=== PATIENT | female | born 1980 | race Caucasian/White ===

== ENCOUNTER → 2016-12-17 | Outpatient (CLI) | payer OTHER ==
[~2016-12-17] MED LIST: BENZ56AE TP; CODE-54 PO; Docusate Sodium PO; FRS325T PO; Ibuprofen PO; LEVO75TA6 PO; MULT-608 PO
== END ==
LOC: CARD 12:19
PROVIDERS: ATTEND Nurse Practitioner Family
DX: R07.9 Chest pain, unspecified (principal)
CPT/HCPCS: 93005

== ENCOUNTER → 2017-01-03 | Outpatient (CLI) | payer OTHER ==
--- NOTE | 2017-01-07 07:53 | ECHOCARDIOGRAPHY REPORT ---
DATE OF SERVICE: 01/03/2017 PROCEDURE: TWO-DIMENSIONAL ECHOCARDIOGRAM ORDERING PHYSICIAN: Dr. Carreon. PRIMARY PHYSICIAN: ____ CLINICAL DIAGNOSES: Syncope, bradycardia. MEASUREMENTS: Aortic root 3.2. Left atrium 3.2. Left ventricular diameter diastolic 4.6 IVS thickness 0.9. LVPW thickness 0.8. DESCRIPTION: Two-dimensional echocardiography shows normal global left ventricular systolic function with normal regional wall motion. Aortic, mitral and tricuspid valve leaflets show good leaflet excursion. Aortic valve appears to be trileaflet. Doppler imaging did not indicate any significant valvular regurgitation or stenosis. Pulmonary artery systolic pressure is estimated to be within normal limits. There is no evidence of any significant intracardiac shunt on this transthoracic echocardiographic study. Inferior vena cava is of normal size and exhibits normal inspiratory collapse. CONCLUSIONS: 1. Normal global left ventricular systolic function with an ejection fraction approximately 60%. 2. No regional wall motion abnormalities seen on this study. 3. No significant valvular regurgitation or stenosis. 4. Pulmonary artery systolic pressure is estimated to be within normal limits. Job ID: [id number] DocumentID: [id number] Dictated Date: 01/06/2017 17:41:14 Inside Barrel Lathe Operator Date: 01/06/2017 21:19:02 Dictated By: AVA CARREON MD, MA, FACP, FACC,
== END ==
LOC: CARD 12:16
PROVIDERS: ATTEND Internal Medicine Cardiovascular Disease
DX: R00.1 Bradycardia, unspecified (principal); R55 Syncope and collapse
CPT/HCPCS: 93306

== ENCOUNTER → 2017-01-07 | Outpatient (CLI) | payer OTHER | LOC: CARD 11:10 | PROVIDERS: ATTEND Internal Medicine Cardiovascular Disease | DX: R55 Syncope and collapse (principal); R00.1 Bradycardia, unspecified | CPT/HCPCS: 93225; 93226 ==

== ENCOUNTER → 2017-03-13 | Outpatient (CLI) | payer OTHER ==
--- NOTE | 2017-03-13 15:53 | Diagnostic Imaging Report ---
INDICATION: Placenta previa. survey. TECHNIQUE: Multiple real-time grayscale images were obtained over the gravid uterus. COMPARISON: None FINDINGS: heart rate is 143 beats per minute. The placenta is fundal and is posterior. There is no placenta previa. The cervix is 4.2 cm in length with closed appearance. There is adequate amniotic fluid seen. The cord insertion, the four-chamber view, two umbilical arteries, the stomach, the spine, posterior fossa, and the lateral ventricles appear unremarkable. Biometrical measurements are as follows: Biparietal 4.65 cm, age 20 weeks 1 days. Head circumference 17.35 cm, age 20 weeks 0 days. Abdominal circumference 15.19 cm, age 20 weeks 3 days. Femur length 3.21 cm, age 20 weeks 0 days. Sonographic estimate age: 20 weeks 1 days. This compares to gestational age of 20 weeks and 2 days based on assigned BONNIE of 07/29/2017 with growth parameters within normal limits. Sonographic estimated date of delivery: 07-30-17. Estimated Weight: 337 gm (+/- 49 gm). LMP percentile: 39%. heart rate: 143 beats per minute. number: 1 of 1. IMPRESSION: Live intrauterine . Dictated by: Dictated on workstation # [id number]
== END ==
LOC: RAD 13:58
PROVIDERS: ATTEND Obstetrics & Gynecology
DX: Z36 Encounter for antenatal screening of mother (principal); Z3A.20 20 weeks gestation of pregnancy
CPT/HCPCS: 76805

== ENCOUNTER 2017-05-23 09:29 | Outpatient (RCR) | payer OTHER | END 2017-05-31 | disposition home or self-care (01) | DX: M54.5 Low back pain (principal) ==

== ENCOUNTER 2017-06-11 09:24 | Outpatient (RCR) | payer OTHER ==
[2017-07-29] MEDS ORDERED: DOCU100C37 PO (16:58)
[2017-07-29] MEDS ORDERED: BENZ56AE2 TP (16:58)
[2017-07-29] MEDS ORDERED: Hydrocodone Bit/Acetaminophen PO (16:58)
[2017-07-29] MEDS ORDERED: IBUP-1773 PO (16:58)
== END 2017-08-15 16:06 | disposition home or self-care (01) ==
DX: M54.5 Low back pain (principal)

== ENCOUNTER → 2017-07-16 | Outpatient (CLI) | payer OTHER ==
[2017-07-16 09:10] LABS: MEAN PLATELET VOLUME 9.3 FL (7.4-10.4); RED BLOOD COUNT 3.68 10^6/uL (4.35-5.85); RED CELL DISTRIBUTION WIDTH 13.6 % (10.0-14.5)
--- NOTE | 2017-07-16 11:10 | Diagnostic Imaging Report ---
PROCEDURE: US Carotid Duplex Bilateral. TECHNIQUE: Multiple Real-time grayscale images were obtained over the carotid arteries in various projections bilaterally. Additional duplex Doppler and color Doppler images were also obtained. INDICATION: Pulsatile tinnitus. FINDINGS: Grayscale images demonstrate no significant plaque. Color Doppler demonstrates patent common, internal, and external carotid arteries bilaterally. The vertebral arteries are patent and demonstrate antegrade flow on both sides. The right ICA velocities are 94, 89, and 109 cm/s from proximal to distal and on the left side are 91, 105, and 106 cm/s. The ICA/CCA ratios are up to 0.9 on the right side and 0.9 on the left. IMPRESSION: No significant plaque. The estimated underlying stenosis is between 0-25% bilaterally. Dictated by: Dictated on workstation # [id number]
== END ==
LOC: RAD 08:58
PROVIDERS: ATTEND Otolaryngology Otolaryngology/Facial Plastic Surgery
DX: H93.A3 Pulsatile tinnitus, bilateral (principal)
CPT/HCPCS: 36415; 84443; 85027; 85652; 93880

== ENCOUNTER 2017-07-29 06:30 | Inpatient (IN) | payer OTHER ==
[2017-07-29] VITALS (33 sets, daily range): BP systolic 94–150; BP diastolic 52–115
[~2017-07-29] VITALS: Ht 172.7 cm; Wt 84.4 kg
[2017-07-29] MEDS ORDERED: D5 LR IV SOLUTION 1,000 ML IV ONE (06:49)
[2017-07-29] MEDS: D5 LR IV SOLUTION 1,000 ML IV SCH ×2 (07:07→15:00)
[2017-07-29] MEDS ORDERED: LIDOCAINE/EPI 1%-1:100,000 (XYLOCAINE) 20ML INJ ONE (08:00)
[2017-07-29 08:12] LABS: BASOPHILS % (AUTO) 0 % (0-10); EOSINOPHILS # (AUTO) 0.1 10^3/uL (0.0-0.3); EOSINOPHILS % (AUTO) 1 % (0-10); LYMPHOCYTES # (AUTO) 1.5 X 10^3 (1.0-4.0); LYMPHOCYTES % (AUTO) 21 % (12-44); MEAN CORPUSCULAR HEMOGLOBIN 34 PG (25-34); MEAN CORPUSCULAR HGB CONC 35 G/DL (32-36); MEAN CORPUSCULAR VOLUME 96 FL (80-99); MEAN PLATELET VOLUME 10.3 FL (7.4-10.4); MONOCYTES # (AUTO) 0.6 X 10^3 (0.0-1.0); MONOCYTES % (AUTO) 8 % (0-12); NEUTROPHILS % (AUTO) 71 % (42-75); PLATELET COUNT 111 10^3/uL (130-400); RED BLOOD COUNT 3.55 10^6/uL (4.35-5.85); RED CELL DISTRIBUTION WIDTH 13.7 % (10.0-14.5); WHITE BLOOD COUNT 7.1 10^3/uL (4.3-11.0)
--- NOTE | 2017-07-29 08:42 | History & Physical-OB ---
OB - Chief Complaint & HPI Date/Time Date of Admission: Date of Admission: Jul 29, 2017 at 06:34 Time Seen by Provider: 08:20 Chief Complaint/History OB-Reason for Admission/Chief: Induction of Labor Hx : 4 Hx Para: 3 Expected Date of Delivery: Jul 29, 2017 Gestational Age in Weeks: 40 Gestational Age in Days: 0 Indication for induction: post dates Admission Nurse Assessment Rev: Yes History of Labs O neg Antibody pos (RhIG) RI RPR NR HBsAg NR HIV NR GC neg GBS neg Allergies and Home Medications Allergies Coded Allergies: No Known Drug Allergies (Unverified , 08/04/14) Home Medications Levothyroxine Sodium 75 Mcg Tablet, 75 MCG PO DAILY, (Reported) Multivitamins 1 Tab Tablet, 1 TAB PO DAILY, (Reported) OB - History Hx of Present Care: Yes Ultrasounds: Normal mid trimester US Obstetrical Complications: None Medical Complications: None Obstetrical History Hx Termination: No Hx Multiple Gestation: No Hx Complication: No Hx Induced Hypertens: No Hx Maternal Gestational Diabet: No Delivery History Hx Dystocia: No Hx Large For Gestational Age I: No Hx Small for Gestational Age I: No Hx Section: No Hx Vaginal Delivery Post C-Sec: No Hx Blood Disorders: No Adverse Rxn to Tranfusion: No Patient Past Medical History Depression, Endometriosis Immunizations Hepatitis A: No Hepatitis B: Yes Tetanus Booster (TDap): Less than 5yrs OB - Admission Exam Physical Exam HEENT: NCAT Heart: Rhythm Normal Lungs: Clear Abdomen: Gravid Extremities: Normal Reflexes: Normal Cervical Dilatation: 4cm Effacement: 75% Station: -1 Membranes: Intact Heart Rate: 130's Accelerations: Accelerations Present Decelerations: No Decelerations Short Term Variability: Present Detention Variability: Average (6-25) Contractions on Admission: >10 Minutes Apart Intensity: Mild Michelle Scoring Tool (Modified) Dilation (cm): 3-4cm (2) Effacement (%): 51-79% (2) Descent/Station: -1,0 (2) Cervix Consistency: Soft (2) Cervix Position: Anterior (2) Add 1 point for: Each previous vaginal delivery (1) Michelle Score: 13 Labs Laboratory Tests Test 07/29/17 07:05 Range/Units White Blood Count 7.1 4.3-11.0 10^3/uL Red Blood Count 3.55 L 4.35-5.85 10^6/uL Hemoglobin 11.9 11.5-16.0 G/DL Hematocrit 34 L 35-52 % Mean Corpuscular Volume 96 80-99 FL Mean Corpuscular Hemoglobin 34 25-34 PG Mean Corpuscular Hemoglobin Concent 35 32-36 G/DL Red Cell Distribution Width 13.7 10.0-14.5 % Platelet Count 111 L 130-400 10^3/uL Mean Platelet Volume 10.3 7.4-10.4 FL Neutrophils (%) (Auto) 71 42-75 % Lymphocytes (%) (Auto) 21 12-44 % Monocytes (%) (Auto) 8 0-12 % Eosinophils (%) (Auto) 1 0-10 % Basophils (%) (Auto) 0 0-10 % Neutrophils # (Auto) 5.0 1.8-7.8 X 10^3 Lymphocytes # (Auto) 1.5 1.0-4.0 X 10^3 Monocytes # (Auto) 0.6 0.0-1.0 X 10^3 Eosinophils # (Auto) 0.1 0.0-0.3 10^3/uL Basophils # (Auto) 0.0 0.0-0.1 10^3/uL OB - Assessment/Plan/Diagnosis Assessment Assessment: induction of labor Plan Induction Method: AROM Discharge Diagnosis Diagnosis: 36 yo @ 40.0 AMA Gestational thrombocytopenia GBS neg LESLY KAUR DO Jul 29, 2017 08:42
[2017-07-29 08:56] LABS: BILIRUBIN,URINE NEGATIVE (NEGATIVE); KETONES,URINE NEGATIVE (NEGATIVE); LEUKOCYTE ESTERASE ,URINE NEGATIVE (NEGATIVE); NITRITE,URINE NEGATIVE (NEGATIVE); PH,URINE 8 (5-9); PROTEIN,URINE NEGATIVE (NEGATIVE); UROBILINOGEN,URINE NORMAL (NORMAL)
[2017-07-29 09:11] LABS: WBC,URINE RARE /HPF
[2017-07-29] MEDS ORDERED: OXYTOCIN/NORMAL SALINE 500 ML IV ONE (09:29)
[2017-07-29] MEDS ORDERED: OXYTOCIN/NORMAL SALINE 500 ML IV SCH ×2 (09:36→16:03)
[2017-07-29] MEDS ORDERED: LIDOCAINE/EPI 2% 1:200,00 (XYLOCAINE) 10 ML VIAL ONE (13:56)
[2017-07-29] MEDS ORDERED: fentaNYL INJECTION 100 MCG/2 ML AMP ONE (13:58)
[2017-07-29] MEDS ORDERED: CATHETER FLUSH 10 ML SYR IV SCH (14:00)
[2017-07-29] MEDS ORDERED: HYDROcodone/APAP 5 MG/325 MG (LORTAB) TAB PO PRN (16:15)
[2017-07-29] MEDS ORDERED: MEASLES,MUMPS,RUBELLA 1 EA INJ SQ ONE (16:15)
[2017-07-29] MEDS ORDERED: DIBUCAINE (NUPERCAINAL) 1% OINT 30 GM TOP PRN (16:15)
[2017-07-29] MEDS ORDERED: WITCH HAZEL(TUCKS) 40 EA JAR TOP PRN (16:15)
[2017-07-29] MEDS ORDERED: TETANUS,DIPTH,PERTUSS P/F (BOOSTRIX) 0.5 ML VIAL IM ONE (16:15)
[2017-07-29] MEDS ORDERED: BENZOCAINE/MENTHOL (DERMOPLAST) 56 ML CAN TP PRN (16:15)
--- NOTE | 2017-07-29 16:56 | OB Labor & Delivery Record ---
L&D History Date of Service Date of Service: Jul 29, 2017 History Expected Date of Delivery: Jul 29, 2017 Gestational Age in Weeks: 40 Hx : 4 Hx Para: 3 Complications Events: Routine care (AMA, and Gestational Thrombocytopenia) Operative Indications (Cesarea: N/A-Vaginal Delivery Intrapartal Events: None L&D Stage1 Stage One Onset of Labor - Date: Jul 29, 2017 Monitors and Tracing Monitor Mode: External Heart Rate: 130 Monitor Accelerations: Uniform Monitor Decelerations: None Station: +1 Sports Instructor Variability: Average (6-10) Short Term Variability: Present Presentation: Vertex Vital Signs VS - Last 72 Hours, by Label 07/29/17 07/29/17 07/29/17 07/29/17 07:00 07:30 08:00 08:30 Temp 98.1 Pulse 63 75 81 73 Resp 20 20 20 20 B/P (MAP) 108/59 109/61 109/73 124/65 O2 Delivery Room Air Room Air Room Air Room Air 07/29/17 07/29/17 07/29/17 07/29/17 09:00 09:30 10:00 10:30 Pulse 62 63 Resp 20 20 20 20 B/P (MAP) 110/61 119/56 O2 Delivery Room Air Room Air Room Air Room Air 07/29/17 07/29/17 07/29/17 07/29/17 10:45 11:00 11:15 11:30 Temp 98.4 Pulse 57 57 71 60 Resp 20 20 20 20 B/P (MAP) 119/62 103/60 102/64 98/58 O2 Delivery Room Air Room Air Room Air Room Air 07/29/17 07/29/17 07/29/17 07/29/17 11:45 12:00 12:15 12:30 Pulse 70 56 71 63 Resp 20 20 20 20 B/P (MAP) 94/57 108/56 147/115 109/57 O2 Delivery Room Air Room Air Room Air Room Air 07/29/17 07/29/17 07/29/17 07/29/17 12:45 13:00 13:15 13:30 Pulse 63 62 61 62 Resp 20 20 20 20 B/P (MAP) 125/65 110/61 111/53 123/58 O2 Delivery Room Air Room Air Room Air Room Air 07/29/17 07/29/17 07/29/17 07/29/17 13:45 14:00 14:15 14:30 Pulse 67 70 62 Resp 20 20 20 20 B/P (MAP) 127/61 150/84 112/62 Pulse Ox 99 O2 Delivery Room Air Room Air Room Air Room Air 07/29/17 07/29/17 14:45 15:00 Pulse 59 59 Resp 20 20 B/P (MAP) 100/56 95/52 O2 Delivery Room Air Room Air Rupture of Membranes Amniotic Membrane Rupture Time: 0806 Amniotic Membrane Fluid Desc.: Clear Vaginal Bleeding Description: Normal Show Progress/Notes spinal block administered from anesthesia due to close proximity to delivery timing. She was 8-9 cm at the time of placement and received excellent pain control from this. L&D Stage2 Stage Two Stage II Date: Jul 29, 2017 Monitors and Tracing Monitor Mode: External Heart Rate: 130 Monitor Decelerations: Variable Sports Instructor Variability: Average (6-10) Short Term Variability: Present Position: Right Occiput Anterior Presentation: Vertex Cord Descript/Complications Cord Vessel Description: 3 Vessels Complications nuchal cord x 2 Delivery Type Delivery Method: Spontaneous Vaginal Anterior Shoulder: Right Episiotomy/Perineal Laceration Laceraction(s)/Extensions: Yes Episiotomy Description: Midline, Perineal Extension/lac Degree (describe repair) midline perineal laceration 2nd degree repaired in usual fashion Condition of Delivery 1 minute Comment: 9 5 minute Comment: 9 Condition of Condition of : Living Exam: No Observed Abnormalities Live male weight 7lbs 10 oz Resuscitation Resuscitation: N/A - Spontaneous Resp L&D Stage3 Stage Three Stage III Date: Jul 29, 2017 Pictocin Pitocin Administration mu/min: 0 Pitocin ml/hr: 0 Pitocin Administration Comment: PITOCIN bolused wide open at delivery of placneta Placenta Delivery Placenta Delivery: Spontaneous Delivery Summary Summary Estimated blood loss (mL): 350 Attending at delivery: Lesly Kaur DO Condition of Delivery Examined: Cervix Examined, Uterus Explored Post Hemorrhage: No Condition of Mother stable Condition of (s) stable LESLY KAUR DO Jul 29, 2017 4:56 pm
--- NOTE | 2017-07-29 16:57 | Discharge Inst-Women's Service ---
Discharge Inst-Women's Serv Depart Medication/Instructions New, Converted or Re-Newed RX: RX on Chart Consults/Follow Up Additional Follow Up: Yes Orders/Referrals DR. Kaur in 6 weeks Activity Activity: Activity as Tolerated Driving Instructions: No Driving for 1 Week NO SMOKING: NO SMOKING Nothing Inside Vagina: No Douching, No [place], No Tampons Diet Discharge Diet: No Restrictions Symptoms to Report to : Bleeding Excessive, Pain Increased, Fever Over 101 Degrees F, Vaginal Bleeding Increase, Questions/Concerns For Any Problems or Questions: Contact Your Physician Skin/Wound Care Bathing Instructions: Shower (x 2 weeks, or sitz baths) LESLY KAUR DO Jul 29, 2017 4:57 pm
[2017-07-29] MEDS ORDERED: BENZ56AE2 TP (16:58)
[2017-07-29] MEDS ORDERED: Hydrocodone Bit/Acetaminophen PO (16:58)
[2017-07-29] MEDS ORDERED: IBUP-1773 PO (16:58)
[2017-07-29] MEDS ORDERED: DOCU100C37 PO (16:58)
[2017-07-29] MEDS: IBUPROFEN 600 MG (MOTRIN) TAB PO SCH ×2 (18:05→23:41)
[2017-07-29] MEDS ORDERED: INFLUENZA TRIvalent 2017-2018 0.5 ML/45 MCG SYR IM ONE (20:15)
[2017-07-29] MEDS: DOCUSATE SODIUM 100 MG (COLACE) CAP PO SCH (21:09)
[2017-07-29] MEDS: CATHETER FLUSH 10 ML SYR IV SCH (21:09)
[2017-07-30] VITALS: BP 95/53
[2017-07-30 06:00] VITALS: BP 104/62
[2017-07-30] MEDS: IBUPROFEN 600 MG (MOTRIN) TAB PO SCH ×3 (06:02→17:09)
[2017-07-30 06:16] LABS: BASOPHILS % (AUTO) 0 % (0-10); EOSINOPHILS # (AUTO) 0.1 10^3/uL (0.0-0.3); EOSINOPHILS % (AUTO) 1 % (0-10); LYMPHOCYTES # (AUTO) 1.7 X 10^3 (1.0-4.0); LYMPHOCYTES % (AUTO) 16 % (12-44); MEAN CORPUSCULAR HEMOGLOBIN 33 PG (25-34); MEAN CORPUSCULAR HGB CONC 35 G/DL (32-36); MEAN CORPUSCULAR VOLUME 94 FL (80-99); MEAN PLATELET VOLUME 9.8 FL (7.4-10.4); MONOCYTES # (AUTO) 0.8 X 10^3 (0.0-1.0); MONOCYTES % (AUTO) 7 % (0-12); NEUTROPHILS # (AUTO) 8.1 X 10^3 (1.8-7.8); NEUTROPHILS % (AUTO) 76 % (42-75); PLATELET COUNT 117 10^3/uL (130-400); RED BLOOD COUNT 3.28 10^6/uL (4.35-5.85); RED CELL DISTRIBUTION WIDTH 13.1 % (10.0-14.5); WHITE BLOOD COUNT 10.7 10^3/uL (4.3-11.0)
[2017-07-30] MEDS ORDERED: PRENATAL VITAMIN 1 EA TAB PO SCH (07:00)
--- NOTE | 2017-07-30 08:36 | Progress Note-Standard ---
Standard Progress Note Progress Notes/Assess & Plan Date Seen by Provider: Jul 30, 2017 Time Seen by Provider: 08:35 Progress/Assessment & Plan Patient doing well today, no concern voiced. Lochia light. Ambulating and voiding freely. Vital Sign - Last 24 Hours 07/29/17 07/29/17 07/29/17 07/29/17 09:00 09:30 10:00 10:30 Pulse 62 63 Resp 20 20 20 20 B/P (MAP) 110/61 119/56 O2 Delivery Room Air Room Air Room Air Room Air 07/29/17 07/29/17 07/29/17 07/29/17 10:45 11:00 11:15 11:30 Temp 98.4 Pulse 57 57 71 60 Resp 20 20 20 20 B/P (MAP) 119/62 103/60 102/64 98/58 O2 Delivery Room Air Room Air Room Air Room Air 07/29/17 07/29/17 07/29/17 07/29/17 11:45 12:00 12:15 12:30 Pulse 70 56 71 63 Resp 20 20 20 20 B/P (MAP) 94/57 108/56 147/115 109/57 O2 Delivery Room Air Room Air Room Air Room Air 07/29/17 07/29/17 07/29/17 07/29/17 12:45 13:00 13:15 13:30 Pulse 63 62 61 62 Resp 20 20 20 20 B/P (MAP) 125/65 110/61 111/53 123/58 O2 Delivery Room Air Room Air Room Air Room Air 07/29/17 07/29/17 07/29/17 07/29/17 13:45 14:00 14:15 14:30 Pulse 67 70 62 Resp 20 20 20 20 B/P (MAP) 127/61 150/84 112/62 Pulse Ox 99 O2 Delivery Room Air Room Air Room Air Room Air 07/29/17 07/29/17 07/29/17 07/29/17 14:45 15:00 15:15 15:30 Pulse 59 59 70 61 Resp 20 20 20 20 B/P (MAP) 100/56 95/52 131/57 106/55 O2 Delivery Room Air Room Air Room Air Room Air 07/29/17 07/29/17 07/29/17 07/29/17 15:45 16:30 16:40 17:09 Pulse 75 58 57 61 Resp 18 18 18 18 B/P (MAP) 107/74 126/66 110/64 118/66 07/29/17 07/29/17 07/29/17 07/29/17 17:24 17:38 17:48 20:15 Temp 98.4 Pulse 54 63 65 74 Resp 18 18 18 19 B/P (MAP) 113/63 112/55 107/57 110/68 Pulse Ox 97 O2 Delivery Room Air 07/30/17 07/30/17 00:00 06:00 Temp 97.4 97.6 Pulse 59 63 Resp 16 18 B/P (MAP) 95/53 104/62 Pulse Ox 98 O2 Delivery Room Air Uterine fundus firm and palpated below umbilicus Laboratory Tests Test 07/30/17 05:44 Range/Units White Blood Count 10.7 4.3-11.0 10^3/uL Red Blood Count 3.28 L 4.35-5.85 10^6/uL Hemoglobin 10.9 L 11.5-16.0 G/DL Hematocrit 31 L 35-52 % Mean Corpuscular Volume 94 80-99 FL Mean Corpuscular Hemoglobin 33 25-34 PG Mean Corpuscular Hemoglobin Concent 35 32-36 G/DL Red Cell Distribution Width 13.1 10.0-14.5 % Platelet Count 117 L 130-400 10^3/uL Mean Platelet Volume 9.8 7.4-10.4 FL Neutrophils (%) (Auto) 76 H 42-75 % Lymphocytes (%) (Auto) 16 12-44 % Monocytes (%) (Auto) 7 0-12 % Eosinophils (%) (Auto) 1 0-10 % Basophils (%) (Auto) 0 0-10 % Neutrophils # (Auto) 8.1 H 1.8-7.8 X 10^3 Lymphocytes # (Auto) 1.7 1.0-4.0 X 10^3 Monocytes # (Auto) 0.8 0.0-1.0 X 10^3 Eosinophils # (Auto) 0.1 0.0-0.3 10^3/uL Basophils # (Auto) 0.0 0.0-0.1 10^3/uL Diagnosis: PPD 1 NVD Thrombocytopenia improved Hypothyroidism P: Anticipate dc later today pending release Continue routine PP care Discharge instructions reviewed. LESLY KAUR DO Jul 30, 2017 8:36 am
--- NOTE | 2017-07-30 08:52 | Anesthesia-Regional Post-Op ---
Regional Patient Condition Mental Status: Alert, Oriented x3 Circulation: Same as Pre-Op Headache: Absent Sensation: Full Recovery Motor Block: Absent Post Op Complications Complications None Follow Up Care/Instructions Patient Instructions None needed. Anesthesia/Patient Condition Patient is doing well, no complaints, stable vital signs, no apparent adverse anesthesia problems. No complications reported per nursing. D/C home per [facility] [place]: No CITLALI WALKER CRNA Jul 30, 2017 08:52
[2017-07-30] MEDS: DOCUSATE SODIUM 100 MG (COLACE) CAP PO SCH (10:04)
[2017-07-30] MEDS: CATHETER FLUSH 10 ML SYR IV SCH (10:29)
[2017-07-30 11:43] VITALS: BP 101/66
== END 2017-07-30 17:25 | disposition home or self-care (01) | DRG 775 ==
LOC: LDRP 06:34
PROVIDERS: ADMIT Obstetrics & Gynecology; ATTEND Obstetrics & Gynecology
PROC: 10E0XZZ Delivery of Products of Conception, External Approach (ICD-10-PCS; principal; 2017-07-29)
PROC: 0KQM0ZZ Repair Perineum Muscle, Open Approach (ICD-10-PCS; 2017-07-29)
DX: O48.0 Post-term pregnancy (principal); O99.113 Other diseases of the blood and blood-forming organs and certain disorders involving the immune mechanism complicating pregnancy, third trimester; D69.6 Thrombocytopenia, unspecified; O70.1 Second degree perineal laceration during delivery; O99.343 Other mental disorders complicating pregnancy, third trimester; F32.9 Major depressive disorder, single episode, unspecified; O99.283 Endocrine, nutritional and metabolic diseases complicating pregnancy, third trimester; E03.9 Hypothyroidism, unspecified; O69.81X0 Labor and delivery complicated by cord around neck, without compression, not applicable or unspecified; Z3A.40 40 weeks gestation of pregnancy; Z37.0 Single live birth
CPT/HCPCS: 36415; 81000; 83033; 85025; 86850; 86900; 86901; 87088

== ENCOUNTER 2017-11-05 05:38 | Outpatient (CLI) | payer OTHER ==
[~2017-11-05] VITALS: Ht 172.7 cm; Wt 72.6 kg
[~2017-11-05 05:38] MED LIST changes: +BENZ56AE2 TP; +DOCU100C37 PO; +Hydrocodone Bit/Acetaminophen PO; +IBUP-1773 PO
[2017-11-05] MEDS ORDERED: LEVO75TA6 PO (10:30)
== END 2017-11-05 10:38 ==
LOC: PREOP 05:38 → EEVIPCON 05:38 → PREOP 10:38
PROVIDERS: ATTEND Obstetrics & Gynecology
DX: Z01.818 Encounter for other preprocedural examination (principal); N81.6 Rectocele

== ENCOUNTER 2017-11-13 08:58 | Day surgery (SDC) | payer BC, OTHER ==
[~2017-11-13] VITALS: Ht 172.7 cm; Wt 72.6 kg
[2017-11-13] MEDS ORDERED: LACTATED RINGERS 1,000 ML IV PRN (09:36)
[2017-11-13] MEDS ORDERED: FAMOTIDINE 20MG/2ML IV (PEPCID) IV ONE (09:45)
[2017-11-13] MEDS ORDERED: SCOPOLAMINE 1.5 MG (TRANSDERM-SCOP) PATCH TOP ONE (09:45)
[2017-11-13] MEDS ORDERED: MIDAZOLAM 2 MG/2 ML (VERSED) VIAL IV ONE (09:45)
[2017-11-13] MEDS ORDERED: ONDANSETRON 4 MG/2 ML (SDV) Z0FRAN IV ONE (09:45)
[2017-11-13] MEDS ORDERED: NS (IVPB) 100 ML ONE (10:19)
[2017-11-13] MEDS ORDERED: ceFAZolin 1,000 MG (ANCEF) VIAL ONE (10:19)
[2017-11-13] MEDS ORDERED: ONDANSETRON 4 MG/2 ML (SDV) Z0FRAN IV PRN (11:00)
[2017-11-13] MEDS ORDERED: HYDROcodone/APAP 5 MG/325 MG (LORTAB) TAB PO PRN (11:00)
[2017-11-13] MEDS ORDERED: BENZOCAINE/MENTHOL (DERMOPLAST) 56 ML CAN TP PRN ×2 (11:00→15:15)
[2017-11-13] MEDS ORDERED: METOCLOPRAMIDE INJ 10 MG/2 ML (REGLAN) IV PRN (11:00)
[2017-11-13] MEDS ORDERED: KETOROLAC 30 MG/ML VIAL IV SCH (11:00)
[2017-11-13] MEDS ORDERED: proPOfol 200 MG/20 ML (DIPRIVAN) VIAL IV ONE (11:02)
[2017-11-13] MEDS ORDERED: LACTATED RINGERS 1,000 ML IV ONE (11:02)
[2017-11-13] MEDS ORDERED: LIDOCAINE PF 2% 5 ML (XYLOCAINE) VIAL ONE (11:02)
[2017-11-13] MEDS ORDERED: SEVOFLURANE (ULTANE) 15 ML INHAL SOLN ONE ×2 (11:02→11:50)
[2017-11-13] MEDS ORDERED: MIDAZOLAM 2 MG/2 ML (VERSED) VIAL ONE (11:03)
[2017-11-13] MEDS ORDERED: fentaNYL INJECTION 100 MCG/2 ML AMP ONE (11:03)
--- NOTE | 2017-11-13 11:03 | Discharge Inst-Women's Service ---
Discharge Inst-Women's Serv Depart Medication/Instructions New, Converted or Re-Newed RX: RX on Chart Consults/Follow Up Additional Follow Up: Yes Orders/Referrals Dr. Kaur in 5 weeks Activity Activity: Activity as Tolerated Driving Instructions: No Driving for 1 Week NO SMOKING: NO SMOKING Nothing Inside Vagina: No Douching, No [place], No Tampons Diet Discharge Diet: No Restrictions Symptoms to Report to : Bleeding Excessive, Pain Increased, Fever Over 101 Degrees F, Vaginal Bleeding Increase, Questions/Concerns For Any Problems or Questions: Contact Your Physician Skin/Wound Care Infection Signs and Symptoms: Increased Redness, Foul Odor of Wound, Increased Drainage, Skin Itchy or Has a Rash, Increased Swelling, Temperature Above 101 F Bathing Instructions: Shower (and sitz baths after 2 weeks) LESLY KAUR DO Nov 13, 2017 11:02
[2017-11-13] MEDS ORDERED: ACHD5005 PO (11:04)
[2017-11-13] MEDS ORDERED: IBUP-1773 PO (11:04)
[2017-11-13] MEDS ORDERED: Benzocaine/Menthol TP (11:04)
[2017-11-13] MEDS ORDERED: DOCU100C37 PO (11:04)
[2017-11-13] MEDS ORDERED: GLYCOPYRROLATE 0.2 MG/ML (ROBINUL) 2 ML VIAL ONE (11:29)
[2017-11-13] MEDS ORDERED: NS 1000 ML IV BAG IV ONE (11:45)
[2017-11-13] MEDS ORDERED: VASOPRESSIN INJECTION 20 UNIT/ML VIAL IJ ONE (11:45)
[2017-11-13] MEDS ORDERED: 0.9% SODIUM CHLORIDE PF INJ 10 ML VIAL IJ ONE (11:45)
[2017-11-13] MEDS: morphine INJ 10 MG/ML 1ML (SYR OR VIAL) IVP PRN ×2 (12:05→12:10)
[2017-11-13] MEDS ORDERED: KETOROLAC 30 MG/ML VIAL IVP ONE (12:15)
[2017-11-13] MEDS ORDERED: PROMETHAZINE INJ 25 MG/ML (PHENERGAN) AMP IVP PRN (12:15)
[2017-11-13] MEDS ORDERED: fentaNYL INJECTION 100 MCG/2 ML AMP IVP PRN (12:15)
[2017-11-13] MEDS ORDERED: ONDANSETRON 4 MG/2 ML (SDV) Z0FRAN IVP PRN (12:15)
[2017-11-13] MEDS ORDERED: MEPERIDINE (DEMEROL) INJ 50 MG/ML IVP PRN (12:15)
[2017-11-13] MEDS: HYDROmorphone (DILAUDID) 2 MG/ML VIAL IVP PRN ×5 (12:20→14:59)
[2017-11-13 13:30] VITALS: BP 119/74
[2017-11-13 14:30] VITALS: BP 102/62
[2017-11-13 14:34] VITALS: BP 113/80
[2017-11-13] MEDS: oxyCODONE/APAP 5/325MG (PERCOCET 5) TABLET PO PRN (14:34)
[2017-11-13] MEDS ORDERED: BENZOCAINE/MENTHOL (DERMOPLAST) 56 ML CAN TP ONE (14:37)
[2017-11-13] MEDS: D5 LR IV SOLUTION 1,000 ML IV SCH (15:58)
[2017-11-13 16:30] VITALS: BP 111/66
[2017-11-13] MEDS ORDERED: INFLUENZA TRIvalent 2017-2018 0.5 ML/45 MCG SYR IM ONE (17:15)
[2017-11-13] MEDS: KETOROLAC 30 MG/ML VIAL IV SCH (17:58)
--- NOTE | 2017-11-13 18:09 | OPERATIVE REPORT ---
DATE OF SERVICE: 11/13/2017 PREOPERATIVE DIAGNOSES: 1. A 36-year-old female with grade 2 rectocele. 2. Perineal laxity. POSTOPERATIVE DIAGNOSES: 1. A 36-year-old female with grade 2 rectocele. 2. Perineal laxity. PROCEDURE PERFORMED: Posterior colporrhaphy with perineoplasty. SURGEON: Lesly Kaur DO. TOLL TEST WORKER: WILLAM Herrera. ANESTHESIA: General endotracheal. ESTIMATED BLOOD LOSS: Minimal. URINE OUTPUT: 250 mL clear at the end of the procedure. FLUIDS: 1100 mL lactated Ringer solution. FINDINGS: A grade 2 rectocele with perineal laxity and separation of the perineal body. SPECIMEN SENT: None. INDICATIONS FOR PROCEDURE: This 36-year-old female is a patient that approximately 4 months from the last vaginal delivery. Since that delivery, she has reported ongoing issues with constipation, difficulty passing defecation and having to reduce her stool vaginally with a finger in order to pass stool. She also notices some discomfort and pressure over the perineum. We discussed in the office proceeding with a rectocele repair in the form of posterior colporrhaphy to both correct the direction of the rectum, but we also discussed reapproximation of the perineal body with perineoplasty. Risks of the procedure were discussed with the patient in detail including risk of bleeding, infection, damaging of any other surrounding structures including but not limited to bowel, bladder, vagina or permanent damage to the vaginal wall fistula formation. After everything was discussed with the patient, consent was obtained in the preoperative area. All questions were answered and the patient was taken to the operating room. OPERATIVE REPORT IN DETAIL: Once in the operating room, general anesthesia was found to be adequate. She was placed in dorsal lithotomy position, prepped and draped in normal sterile fashion. Fitzgerald catheter was placed using sterile technique. I then incised in the shape of an upside down triangle in the perineal body using the knife and dissect the underlying submucosa off of the perineal body exposing the spongio-cavernosus muscles. I then infiltrated all of the margins of the rectocele and the perineal body using vasopressin concentration of 10 units in 50 mL normal saline. Once this was done, I then take Metzenbaum scissors down the midline using them for sharp undermining dissection down the midline of the rectocele. Then, I incised in the midline of the rectocele. I then bluntly dissected off the underlying rectovaginal fascia from the underlying submucosa. I trimmed the excess vaginal tissue from this point and reapproximated the mucosa and rectovaginal fascia using 3-0 Vicryl suture in a running locked fashion. I then reapproximated the perineal body using 0 Vicryl suture in a crown stitch fashion. The perineal body mucosa and submucosa was then reapproximated in the usual fashion using 3-0 Vicryl suture in a running fashion subcuticularly. After which, there was no active bleeding noted from any of my dissection planes. I then packed the vagina using a Premarin-soaked vaginal packing. Fitzgerald catheter was left in place. The patient tolerated the procedure, was to the recovery in stable condition. Lap sponge counts were correct at the end of the procedure. Instrument count was correct as well. Job ID: [id number] DocumentID: [id number] Dictated Date: 11/13/2017 12:11:19 [place] Date: 11/13/2017 18:08:07 Dictated By: LESLY KAUR DO
[2017-11-13 20:00] VITALS: BP 109/64
[2017-11-14] VITALS: BP 103/60
[2017-11-14] MEDS: D5 LR IV SOLUTION 1,000 ML IV SCH (00:36)
[2017-11-14] MEDS: KETOROLAC 30 MG/ML VIAL IV SCH (00:37)
[2017-11-14 04:17] VITALS: BP 99/52
[2017-11-14] MEDS ORDERED: IBUPROFEN 600 MG (MOTRIN) TAB PO ONE (05:44)
[2017-11-14] MEDS: oxyCODONE/APAP 5/325MG (PERCOCET 5) TABLET PO PRN (06:04)
--- NOTE | 2017-11-14 06:31 | Progress Note-Standard ---
Standard Progress Note Progress Notes/Assess & Plan Date Seen by Provider: Nov 14, 2017 Time Seen by Provider: 06:15 Progress/Assessment & Plan Patient doing well, no concerns voiced. Fitzgerald and packing out. DC pending void. Vital Sign - Last 24 Hours 11/13/17 11/13/17 11/13/17 11/13/17 13:30 14:30 14:34 16:30 Temp 97.7 97.6 98.0 98.2 Pulse 52 52 51 50 Resp 18 18 16 16 B/P (MAP) 119/74 (89) 102/62 (75) 113/80 (91) 111/66 (81) Pulse Ox 98 98 99 98 O2 Delivery Room Air Room Air Room Air Room Air 11/13/17 11/14/17 11/14/17 20:00 00:00 04:17 Temp 97.6 97.6 98.0 Pulse 46 38 38 Resp 19 18 16 B/P (MAP) 109/64 (79) 103/60 (74) 99/52 (68) Pulse Ox 98 97 97 O2 Delivery Room Air Room Air Room Air Intake and Output 11/13/17 11/13/17 11/14/17 15:00 23:00 07:00 Intake Total 1100 ml 2500 ml Output Total 200 ml 550 ml Balance 900 ml 1950 ml LESLY KAUR DO Nov 14, 2017 6:31 am
[2017-11-14 07:45] VITALS: BP 92/54
[2017-11-14] MEDS ORDERED: DOCUSATE SODIUM 100 MG (COLACE) CAP PO SCH (09:00)
[2017-11-14 10:40] VITALS: BP 92/54
[2017-11-14] MEDS ORDERED: IBUPROFEN 600 MG (MOTRIN) TAB PO SCH (12:00)
== END 2017-11-14 10:40 | disposition home or self-care (01) ==
LOC: SDC 08:58 → WS 13:36 → SDC 11-14 10:40 → 3RD 11-14 12:06 → WS 11-14 12:06
PROVIDERS: ATTEND Obstetrics & Gynecology
DX: N81.6 Rectocele (principal); N81.89 Other female genital prolapse; E03.9 Hypothyroidism, unspecified; Z79.899 Other long term (current) drug therapy
CPT/HCPCS: 94664

== ENCOUNTER 2017-11-19 22:09 | Observation (INO) | payer BC ==
[~2017-11-19] VITALS: Ht 172.7 cm; Wt 70.3 kg
[~2017-11-19 22:09] MED LIST changes: +ACHD5005 PO; +Benzocaine/Menthol TP
[2017-11-19] MEDS ORDERED: LACTATED RINGERS 1,000 ML IV ONE (22:39)
[2017-11-19] MEDS ORDERED: ONDANSETRON 4 MG/2 ML (SDV) Z0FRAN ONE (22:41)
[2017-11-19 22:47] LABS: BASOPHILS % (AUTO) 0 % (0-10); EOSINOPHILS # (AUTO) 0.1 10^3/uL (0.0-0.3); EOSINOPHILS % (AUTO) 2 % (0-10); HEMATOCRIT 46 % (35-52); HEMOGLOBIN 15.8 G/DL (11.5-16.0); LYMPHOCYTES # (AUTO) 2.4 X 10^3 (1.0-4.0); LYMPHOCYTES % (AUTO) 45 % (12-44); MEAN CORPUSCULAR HEMOGLOBIN 31 PG (25-34); MEAN CORPUSCULAR HGB CONC 35 G/DL (32-36); MEAN CORPUSCULAR VOLUME 90 FL (80-99); MEAN PLATELET VOLUME 9.9 FL (7.4-10.4); MONOCYTES # (AUTO) 0.4 X 10^3 (0.0-1.0); MONOCYTES % (AUTO) 8 % (0-12); NEUTROPHILS # (AUTO) 2.5 X 10^3 (1.8-7.8); NEUTROPHILS % (AUTO) 46 % (42-75); PLATELET COUNT 196 10^3/uL (130-400); RED BLOOD COUNT 5.08 10^6/uL (4.35-5.85); RED CELL DISTRIBUTION WIDTH 12.8 % (10.0-14.5); WHITE BLOOD COUNT 5.5 10^3/uL (4.3-11.0)
--- NOTE | 2017-11-19 22:54 | ED GU-Female ---
General Chief Complaint: -Female Stated Complaint: BLEEDING POST OP,PASSING BLOOD CLOTS Nursing Triage Note: pt had rectocele repair by dr kaur on 11/13/17. no problems until today. vag bleed starting this evening with large clots. Nursing Sepsis Screen: No Definite Risk Source: patient, RN/MD (Dr. KAUR) Exam Limitations: no limitations History of Present Illness Date Seen by Provider: Nov 19, 2017 Time Seen by Provider: 22:43 Initial Comments Patient reports the ER by private conveyance with a chief complaint that tonight this evening she started having some large clots the size her fist past. One week ago she had a rectocele repair and was not really having much spotting or bleeding but then tonight she started having heavy soiling of her pads and she changed out a Cuauhtemoc pad 6 times a day first 10 minutes so she decided she should get in here. She started having some lightheadedness, dizziness feeling flushed. She has no history of coronary artery disease or other significant medical history. She does not take any medications, blood thinners or have a history of easy bleeding or bruising. Her surgeon is Dr. KAUR. She is not expressing any pain just feels a gushing sensation between her legs. Allergies and Home Medications Allergies Coded Allergies: No Known Drug Allergies (Unverified , 08/04/14) Home Medications Docusate Sodium 100 Mg Capsule, 100 MG PO BID PRN for CONSTIPATION-1ST LINE Prescribed by: LESLY KAUR on 11/13/17 1104 Ibuprofen 600 Mg Tablet, 600 MG PO Q6H Prescribed by: LESLY KAUR on 11/13/17 1104 Levothyroxine Sodium 75 Mcg Tablet, 75 MCG PO DAILY, (Reported) [Benzocaine/Menthol] 56 ML AEROSOL, 56 ML TP UD PRN for PAIN-MILD EXTERNAL USE ONLY Prescribed by: LESLY KAUR on 11/13/17 1104 Patient Home Medication List Home Medication List Reviewed: Yes Constitutional: No chills, No diaphoresis, No fever EENTM: No hearing loss, No ear pain, No blurred vision Respiratory: No cough, No short of breath Cardiovascular: No chest pain, No edema, No Hx of Intervention, No palpitations , No syncope Gastrointestinal: No abdominal pain, No constipation, No diarrhea, No dysphagia , No nausea Genitourinary: denies discharge, denies dysuria : No Musculoskeletal: No back pain, No joint pain Skin: No pruritus, No rash Psychiatric/Neurological: Denies Headache, Denies Numbness, Denies Paresthesia Past Vfhapcd-Kqadly-Twpyaf Hx Patient Social History Alcohol Use: Denies Use Recreational Drug Use: No Smoking Status: Never a Smoker Recent Foreign Travel: No Contact w/Someone Who Travel: No Recent Infectious Disease Expo: No Recent Hopitalizations: Yes (rectocele 11/13/17) Immunizations Up To Date Tetanus Booster (TDap): Less than 5yrs PED Vaccines UTD: No Seasonal Allergies Seasonal Allergies: No Surgeries History of Surgeries: Yes (left hip pinning, BREAST AUGMENTATION) Surgeries: Adenoidectomy, Tonsillectomy Respiratory History of Respiratory Disorde: No Cardiovascular History of Cardiac Disorders: Yes (pulse runs in the 40's-her normal) Neurological History of Neurological Disord: No Reproductive System Hx Reproductive Disorders: No Gastrointestinal History of Gastrointestinal Di: Yes (RECTOCELE) Musculoskeletal History of Musculoskeletal Dis: No Endocrine History of Endocrine Disorders: Yes Endocrine Disorders: Hypothyroidsim HEENT History of HEENT Disorders: No Cancer History of Cancer: No Psychosocial History of Psychiatric Problem: No Integumentary History of Skin or Integumenta: No Blood Transfusions History of Blood Disorders: No (anemia in past) Adverse Reaction to a Blood Tr: No Family Medical History Family Medial History: Congenital heart disease 19 FATHER (FATHER AT 51 , stroke also) Physical Exam Vital Signs Vital Signs - First Documented 11/19/17 22:17 Temp 98.2 Pulse 87 Resp 18 B/P (MAP) 132/102 (112) Pulse Ox 99 O2 Delivery Room Air Capillary Refill : Less Than 3 Seconds General Appearance: WD/WN, mild distress HEENT: PERRL/EOMI, pharynx normal Cardiovascular: normal peripheral pulses, regular rate, rhythm, no edema Respiratory: chest non-tender, lungs clear, normal breath sounds, no respiratory distress, no accessory muscle use Gastrointestinal: normal bowel sounds, non tender, soft Genital/Rectal: other (active bleeding through her clothes) Neurologic/Psychiatric: alert, oriented x 3, other (anxious affect) Skin: normal color, warm/dry Progress/Results/Core Measures Suspected Sepsis Recent Fever Within 48 Hours: No Infection Criteria Present: None New/Unexplained Altered Menta: No Sepsis Screen: No Definite Risk Sepsis Diagnosis: SIRS Temperature:98.2 Pulse: 87 Respiratory Rate: 18 Laboratory Tests 11/19/17 22:34: White Blood Count 5.5 Blood Pressure 132 /102 Mean: 112 Laboratory Tests 11/19/17 22:34: Creatinine 0.81, INR Comment 0.9, Platelet Count 196, Total Bilirubin 0.8 Results/Orders Lab Results Laboratory Tests Test 11/19/17 22:34 Range/Units White Blood Count 5.5 4.3-11.0 10^3/uL Red Blood Count 5.08 4.35-5.85 10^6/uL Hemoglobin 15.8 11.5-16.0 G/DL Hematocrit 46 35-52 % Mean Corpuscular Volume 90 80-99 FL Mean Corpuscular Hemoglobin 31 25-34 PG Mean Corpuscular Hemoglobin Concent 35 32-36 G/DL Red Cell Distribution Width 12.8 10.0-14.5 % Platelet Count 196 130-400 10^3/uL Mean Platelet Volume 9.9 7.4-10.4 FL Neutrophils (%) (Auto) 46 42-75 % Lymphocytes (%) (Auto) 45 H 12-44 % Monocytes (%) (Auto) 8 0-12 % Eosinophils (%) (Auto) 2 0-10 % Basophils (%) (Auto) 0 0-10 % Neutrophils # (Auto) 2.5 1.8-7.8 X 10^3 Lymphocytes # (Auto) 2.4 1.0-4.0 X 10^3 Monocytes # (Auto) 0.4 0.0-1.0 X 10^3 Eosinophils # (Auto) 0.1 0.0-0.3 10^3/uL Basophils # (Auto) 0.0 0.0-0.1 10^3/uL Prothrombin Time 12.3 12.2-14.7 SEC INR Comment 0.9 0.8-1.4 Activated Partial Thromboplast Time 35 24-35 SEC Sodium Level 138 135-145 MMOL/L Potassium Level 4.0 3.6-5.0 MMOL/L Chloride Level 102 98-107 MMOL/L Carbon Dioxide Level 26 21-32 MMOL/L Anion Gap 10 5-14 MMOL/L Blood Urea Nitrogen 16 7-18 MG/DL Creatinine 0.81 0.60-1.30 MG/DL Estimat Glomerular Filtration Rate > 60 BUN/Creatinine Ratio 20 Glucose Level 104 70-105 MG/DL Calcium Level 10.1 8.5-10.1 MG/DL Total Bilirubin 0.8 0.1-1.0 MG/DL Aspartate Amino Transf (AST/SGOT) 32 5-34 U/L Alanine Aminotransferase (ALT/SGPT) 54 0-55 U/L Alkaline Phosphatase 55 40-136 U/L Total Protein 7.6 6.4-8.2 GM/DL Albumin 5.0 H 3.2-4.5 GM/DL My Orders Orders - TORSTEN VERDUGO Cbc With Automated Diff (11/19/17 22:39) Comprehensive Metabolic Panel (11/19/17 22:39) Protime With Inr (11/19/17 22:39) Partial Thromboplastin Time (11/19/17 22:39) Ua Culture If Indicated (11/19/17 22:39) Type And Screen (11/19/17 22:39) Saline Lock/Iv-Start (11/19/17 22:39) Lactated Ringers (Lr 1000 Ml Iv Solution (11/19/17 22:39) Ondansetron Injection (Zofran Injectio (11/19/17 22:41) Medications Given in ED Current Medications Medications Dose Ordered Sig/Roberto Route Start Time Stop Time Status Last Admin Dose Admin Ibuprofen 600 mg Q6HR PRN PO 11/19/17 23:30 11/20/17 00:56 600 MG Lactated Ringer's 1,000 ml @ 0 mls/hr Q0M ONCE IV 11/19/17 22:39 11/19/17 22:41 DC 11/19/17 22:40 1,000 MLS/HR Ondansetron HCl 4 mg STK-MED ONCE .ROUTE 11/19/17 22:41 11/19/17 22:43 DC 11/19/17 22:45 4 MG Vital Signs/I&O Vital Sign - Last 12Hours 11/19/17 22:17 Temp 98.2 Pulse 87 Resp 18 B/P (MAP) 132/102 (112) Pulse Ox 99 O2 Delivery Room Air Capillary Refill : Less Than 3 Seconds Blood Pressure Mean: 112 Progress Note : Time: 22:52 Progress Note We'll get some blood for type and screen and CBC and we'll try and collect urine as well. We'll get 2 IVs established and give her some fluids and she is feeling a little dizzy however her blood pressure has been okay so far. Her heart rates elevated in the 90s but not necessarily tachycardic. I've discussed taking a look see if there is anything to be packed or clamped and the patient has requested that we call Dr. KAUR instead as she is afraid that a speculum or any other instrumentation might tear the stitches she is recently had from her rectocele. Consults Consults : Consulting Physician: LESLY KAUR DO Consults Notes Discussed the case thus far in the patient's anxiety and he says he will come in and see the patient. Dr. KAUR examine the patient using speculum examination and found that a blood clot across the cervix to the says he removed the bleeding stopped. He feels this may just be her first period after ceasing breast-feeding. He found the wound from the rectocele repair to be unremarkable and without any evidence of bleeding. He plans to put her on observation stay overnight just to watch her nothing by mouth Departure Communication (Admissions) Time/Spoke to Admitting Phy: 23:[address] KAUR saw the patient and put admission orders in. Impression Impression: Primary Impression: Abnormal uterine bleeding Disposition: ADMITTED INPATIENT Condition: Improved Admissions Decision to Admit Reason: Admit from ER (General) Decision to Admit/Date: Nov 19, 2017 Time/Decision to Admit Time: 23:24 Departure-Patient Inst. Referrals: PAMELA BOO MD (PCP) Primary Care Physician LESLY KAUR DO (Family) Primary Care Physician Copy Copies To 1: PAMELA BOO MD Copies To 2: LESLY KAUR TITUS J Nov 19, 2017 22:54
[2017-11-19] MEDS ORDERED: LYSI500T37 PO (22:55)
[2017-11-19] MEDS ORDERED: UBID1CAP3 PO (22:55)
[2017-11-19] MEDS ORDERED: OXYC-197 PO (22:55)
[2017-11-19 23:19] LABS: ALANINE AMINOTRANSFERASE 54 U/L (0-55); ALKALINE PHOSPHATASE 55 U/L (40-136); BILIRUBIN,TOTAL 0.8 MG/DL (0.1-1.0); BUN/CREATININE RATIO 20; CALCIUM 10.1 MG/DL (8.5-10.1); CARBON DIOXIDE 26 MMOL/L (21-32); CHLORIDE 102 MMOL/L (98-107); CREATININE SERUM 0.81 MG/DL (0.60-1.30); GFR ESTIMATED > 60; GLUCOSE 104 MG/DL (70-105); SODIUM 138 MMOL/L (135-145); TOTAL PROTEIN 7.6 GM/DL (6.4-8.2)
[2017-11-19 23:24] LABS: INR 0.9 (0.8-1.4); PROTHROMBIN TIME PATIENT 12.3 SEC (12.2-14.7)
[2017-11-19] MEDS ORDERED: D5 LR IV SOLUTION 1,000 ML IV SCH (23:30)
[2017-11-19] MEDS ORDERED: HYDROcodone/APAP 5 MG/325 MG (LORTAB) TAB PO PRN (23:30)
[2017-11-19] MEDS ORDERED: IBUPROFEN 600 MG (MOTRIN) TAB PO PRN (23:30)
[2017-11-20 00:39] VITALS: BP 103/77
[2017-11-20 05:00] VITALS: BP 92/65
[2017-11-20 05:21] LABS: BASOPHILS % (AUTO) 0 % (0-10); EOSINOPHILS # (AUTO) 0.1 10^3/uL (0.0-0.3); EOSINOPHILS % (AUTO) 2 % (0-10); HEMATOCRIT 36 % (35-52); LYMPHOCYTES % (AUTO) 30 % (12-44); MEAN CORPUSCULAR HEMOGLOBIN 32 PG (25-34); MEAN CORPUSCULAR HGB CONC 36 G/DL (32-36); MEAN CORPUSCULAR VOLUME 89 FL (80-99); MEAN PLATELET VOLUME 9.4 FL (7.4-10.4); MONOCYTES # (AUTO) 0.4 X 10^3 (0.0-1.0); MONOCYTES % (AUTO) 7 % (0-12); NEUTROPHILS % (AUTO) 61 % (42-75); PLATELET COUNT 182 10^3/uL (130-400); RED CELL DISTRIBUTION WIDTH 12.4 % (10.0-14.5); WHITE BLOOD COUNT 6.5 10^3/uL (4.3-11.0)
[2017-11-20] MEDS ORDERED: LEVO1TAB9 PO (09:21)
--- NOTE | 2017-11-20 09:26 | History & Physical-OB/GYN ---
History of Present Illness History of Present Illness Reason for visit/HPI Heavy vaginal bleeding episode, post op 6 days from posterior colporraphy and perineoplasty Date of Admission Nov 19, 2017 at 11:30 pm Date Seen by Provider: Nov 19, 2017 Time Seen by Provider: 23:00 I consulted on this patient on 11/20/17 09:22 Attending Physician Lesly Kaur DO Admitting Physician Anh Jernigan MD Consult LESLY KAUR DO Allergies and Home Medications Allergies Coded Allergies: No Known Drug Allergies (Unverified , 08/04/14) Home Medications Docusate Sodium 100 Mg Capsule, 100 MG PO BID PRN for CONSTIPATION-1ST LINE Prescribed by: LESLY KAUR on 11/13/17 1104 Ibuprofen 600 Mg Tablet, 600 MG PO Q6H Prescribed by: LESLY KAUR on 11/13/17 110 Levonorgestrel-Ethin Estradiol 1 Each Tablet, 1 EACH PO DAILY Prescribed by: LESLY KAUR on 11/20/17 0921 Levothyroxine Sodium 75 Mcg Tablet, 75 MCG PO DAILY, (Reported) [Benzocaine/Menthol] 56 ML AEROSOL, 56 ML TP UD PRN for PAIN-MILD EXTERNAL USE ONLY Prescribed by: LESLY KAUR on 11/13/17 110 Patient Home Medication List Home Medication List Reviewed: Yes Past Juijnea-Bcrmym-Ihmvbp Hx Patient Social History Marrital Status: Alcohol Use: Denies Use Recreational Drug Use: No Smoking Status: Never a Smoker Recent Foreign Travel: No Contact w/other who traveled: No Recent Hopitalizations: Yes (rectocele 11/13/17) Recent Infectious Disease Expo: No Immunizations Up To Date Tetanus Booster (TDap): Less than 5yrs Pediatric: No Seasonal Allergies Seasonal Allergies: No Surgeries Yes (left hip pinning, BREAST AUGMENTATION) Adenoidectomy, Tonsillectomy Respiratory No Cardiovascular Yes (pulse runs in the 40's-her normal) Neurological No Reproductive System Hx Reproductive Disorders: No Gastrointestinal Yes (RECTOCELE) Musculoskeletal No Endocrine History of Endocrine Disorders: Yes Endocrine Disorders: Hypothyroidsim HEENT History of HEENT Disorders: No Cancer No Psychosocial History of Psychiatric Problem: No Integumentary History of Skin or Integumenta: No Blood Transfusions History of Blood Disorders: No (anemia in past) Adverse Reaction to a Blood Tr: No Family Medical History Family Hx: Congenital heart disease 19 FATHER (FATHER AT 51 , stroke also) Constitutional: see HPI EENTM: see HPI Respiratory: see HPI Cardiovascular: see HPI Gastrointestinal: see HPI Genitourinary: see HPI : No Musculoskeletal: see HPI Skin: see HPI Psychiatric/Neurological: See HPI All Other Systems Reviewed Negative Unless Noted: Yes Physical Exam Physical Exam Vital Signs Vital Signs Date Time Temp Pulse Resp B/P (MAP) Pulse Ox O2 Delivery O2 Flow Rate FiO2 11/20/17 05:00 97.8 57 18 92/65 (74) 95 11/20/17 00:40 54 15 109/84 95 Room Air 11/20/17 00:39 55 18 103/77 (86) 99 11/19/17 22:17 98.2 87 18 132/102 (112) 99 Room Air I & O 11/20/17 07:00 Intake Total 1000 ml Output Total 800 ml Balance 200 ml Capillary Refill : Less Than 3 Seconds Labs Laboratory Tests 11/19/17 22:34: White Blood Count 5.5, Red Blood Count 5.08, Hemoglobin 15.8, Hematocrit 46, Mean Corpuscular Volume 90, Mean Corpuscular Hemoglobin 31, Mean Corpuscular Hemoglobin Concent 35, Red Cell Distribution Width 12.8, Platelet Count 196, Mean Platelet Volume 9.9, Neutrophils (%) (Auto) 46, Lymphocytes (%) (Auto) 45H , Monocytes (%) (Auto) 8, Eosinophils (%) (Auto) 2, Basophils (%) (Auto) 0, Neutrophils # (Auto) 2.5, Lymphocytes # (Auto) 2.4, Monocytes # (Auto) 0.4, Eosinophils # (Auto) 0.1, Basophils # (Auto) 0.0, Prothrombin Time 12.3, INR Comment 0.9, Activated Partial Thromboplast Time 35, Sodium Level 138, Potassium Level 4.0, Chloride Level 102, Carbon Dioxide Level 26, Anion Gap 10, Blood Urea Nitrogen 16, Creatinine 0.81, Estimat Glomerular Filtration Rate > 60 , BUN/Creatinine Ratio 20, Glucose Level 104, Calcium Level 10.1, Total Bilirubin 0.8, Aspartate Amino Transf (AST/SGOT) 32, Alanine Aminotransferase ( ALT/SGPT) 54, Alkaline Phosphatase 55, Total Protein 7.6, Albumin 5.0H 11/20/17 05:15: White Blood Count 6.5, Red Blood Count 4.10L, Hemoglobin 13.0, Hematocrit 36, Mean Corpuscular Volume 89, Mean Corpuscular Hemoglobin 32, Mean Corpuscular Hemoglobin Concent 36, Red Cell Distribution Width 12.4, Platelet Count 182, Mean Platelet Volume 9.4, Neutrophils (%) (Auto) 61, Lymphocytes (%) (Auto) 30, Monocytes (%) (Auto) 7, Eosinophils (%) (Auto) 2, Basophils (%) (Auto) 0, Neutrophils # (Auto) 4.0, Lymphocytes # (Auto) 2.0, Monocytes # (Auto) 0.4, Eosinophils # (Auto) 0.1, Basophils # (Auto) 0.0 General Appearance: No Apparent Distress Respiratory: Lungs Clear Cardiovascular: Regular Rate, Rhythm Abdominal: normal bowel sounds, non tender, soft Labia: WNL Vagina: Bleeding Cervix: Other (light amount of bleeding after large blood clot expressed.) Cervix OS: open Uterus: WNL Pelvic Exam: other (surgical wound healing well, no bleeding from incisional plane) Extremity: Normal Capillary Refill Assessment/Plan Assessment and Plan Bleeding stabilized after exam and evacuation of blood clot, but due to amount of bleeding observation overnight recommended. This morning bleeding stable, plan to send home on OCP to control further bleeding episodes Problems: Admission Diagnosis 36 yo female with late hemorrhage s/p P repair 6 days Admission Status: Observation LESLY KAUR DO Nov 20, 2017 9:26 am
[2017-11-20 09:50] VITALS: BP 89/56
== END 2017-11-20 09:50 | disposition home or self-care (01) ==
LOC: EDUNIT# 22:09 → ER 22:10 → WS 23:30
PROVIDERS: ADMIT Obstetrics & Gynecology; ATTEND Obstetrics & Gynecology
DX: N99.820 Postprocedural hemorrhage of a genitourinary system organ or structure following a genitourinary system procedure (principal); E03.9 Hypothyroidism, unspecified; Z79.899 Other long term (current) drug therapy
CPT/HCPCS: 36415; 80053; 85025; 85610; 85730; 86850; 86900; 86901; 96361; 96374; G0378

== ENCOUNTER → 2018-01-21 | Outpatient (CLI) | payer BC ==
[~2018-01-21] MED LIST changes: +LEVO1TAB9 PO; +LYSI500T37 PO; +OXYC-197 PO; +UBID1CAP3 PO
--- NOTE | 2018-01-21 14:02 | Diagnostic Imaging Report ---
INDICATION: Palpable lump in the right breast. COMPARISON: Correlation is made with prior study from 05/01/2016. TECHNIQUE: 2D and 3D bilateral diagnostic mammography was performed with computer-aided detection (CAD) system. FINDINGS: Bilateral breast implants are again noted. Implant contours appear smooth. Both breasts do show moderate parenchymal heterogeneity and increased density, limiting the sensitivity of mammography. There is an area of increased density in the superior right breast approximately 4-5 cm from the nipple. No suspicious calcifications are seen. At the area of the BB markers, which corresponds to the patient's palpable abnormality, no underlying abnormality is seen. The left breast is stable. The axillae are unremarkable. IMPRESSION: 1. No mammographic abnormality is identified at the area of the patient's palpable abnormality. Sonographic interrogation of this area is recommended. 2. Increased density in the upper-outer right breast approximately 4-5 cm from the nipple, indeterminate. Sonographic interrogation of this region is also recommended. ACR BI-RADS Category 0: Incomplete. (Needs additional imaging evaluation). Result letter will be mailed to the patient. Note: At least 10% of breast cancer is not imaged by mammography. Dictated by: Dictated on workstation # [id number]
--- NOTE | 2018-01-21 20:07 | Diagnostic Imaging Report ---
INDICATION: Right breast lump. COMPARISON: Correlation is made with recent diagnostic mammogram from earlier the same day. FINDINGS: Sonographic interrogation of the area of the right breast lump was performed. This corresponds to the 8 o'clock location. Fibroglandular tissue is located at this location. No discrete mass or fluid collection is seen. In addition, sonographic interrogation of the upper-outer right breast was performed, approximately 4 cm from the nipple, to evaluate the area of increased density noted on recent mammogram. This corresponds to approximately 10:30 location. Normal-appearing fibroglandular tissue at this location is seen. No solid or cystic mass is detected. IMPRESSION: No sonographic abnormality is identified to account for the patient's palpable abnormality or mammographic density. These may represent areas of fibroglandular tissue. Even so, MRI of the breasts would be recommended for further evaluation. ACR BI-RADS Category 0: Incomplete. (Needs additional imaging evaluation). Dictated by: Dictated on workstation # [id number]
== END ==
LOC: RAD 13:15
PROVIDERS: ATTEND Obstetrics & Gynecology
DX: N63.14 Unspecified lump in the right breast, lower inner quadrant (principal)
CPT/HCPCS: 77066

== ENCOUNTER → 2018-02-20 | Outpatient (CLI) | payer BC ==
[~2018-02-20] MED LIST changes: +GADOBUTROL 7.5 MMOL/7.5 ML (GADAVIST) VIAL IV ONE
--- NOTE | 2018-02-20 15:57 | Diagnostic Imaging Report ---
Reason for examination: Right breast palpable mass. Comparison studies are dated 01/21/2018. Additional studies from 05/01/2016 are also reviewed. TECHNIQUE: Utilizing 1.5 Marisela GE magnet, patient was placed in a prone position with a dedicated breast coil utilized. Axial STIR precontrasted sagittal T2 images without fat-sat images were obtained. Postcontrast high-resolution dynamic images were also obtained. Pre and post contrasted images are then evaluated with Splendia for evaluation of possible angiogenesis. 6 cc of Gadavist was injected. The breast tissue is heterogeneously dense. There is mild background parenchymal enhancement. There are bilateral retropectoral saline implants which are intact. RIGHT BREAST: There is an area of non-mass enhancement in the right breast at 12 o'clock position 4 cm from the nipple measuring 2 cm x 1.6 cm (image 84 series 1001). There is also extensive non-mass enhancement in the lower outer quadrant of the right breast extending between 8 and 9 o'clock positions beginning just behind the nipple and extending into the posterior depth of the right lower outer quadrant. Overall dimensions of the non-mass enhancement are 8 cm x 3 cm x 3 cm. This area does also appear to correlate as palpated clinically. LEFT BREAST: There is no suspicious mass or non-mass enhancement in the left breast. VARSHA BASINS: There is one mildly enlarged right axillary level I lymph node measuring 1.6 cm on axial image 14 of series 11. This lymph node does show a preserved fatty hilum but there is diffuse cortical thickening. No other large lymph node in the right axilla or right side varsha basins. No adenopathy in the left-sided varsha basins. IMPRESSION: 1. There is a large area of non-mass enhancement in the right breast lower outer quadrant between 8 and 9 o'clock positions beginning just behind the right nipple and extending to the posterior depth of the right lower outer quadrant. This does also appear to be the same area that is palpable. Dimensions of this area are at 8 cm x 3 cm x 3 cm. Recent ultrasound showed some heterogeneous hypoechoic tissue in this area at 8 o'clock and I would recommend an ultrasound-guided biopsy of this area. There is also a second area of suspicious non-mass enhancement at the 12 o'clock position 4 cm from the nipple measuring 2 cm x 1.6 cm. This could be evaluated with second look ultrasound at the time of biopsy. If biopsy results are benign or inconclusive, breast surgery referral for excision of the palpable area would be recommended based on the suspicious MRI findings and clinical symptoms. 2. One mildly enlarged lymph node in the right axilla measures 1.6 cm in largest diameter in the right axillary level I node basins. This node shows mild diffuse cortical thickening but there is a preserved fatty hilum. 3. Intact bilateral retropectoral saline implants. No suspicious MRI findings in the left breast. ACR BI-RADS Category 4: Suspicious abnormality. Result letter will be mailed to the patient. Recommendations: Right breast with ultrasound at the 12 o'clock position 4 cm from the nipple with right breast ultrasound guided biopsy at the 8 o'clock position in the area of previous ultrasound and palpable abnormality. Dictated by: Dictated on workstation # [id number]
== END ==
LOC: RAD 13:14
PROVIDERS: ATTEND Obstetrics & Gynecology
DX: N63.13 Unspecified lump in the right breast, lower outer quadrant (principal); N63.14 Unspecified lump in the right breast, lower inner quadrant; R59.0 Localized enlarged lymph nodes; Z98.82 Breast implant status
CPT/HCPCS: 77059

== ENCOUNTER → 2018-03-26 | Outpatient (CLI) | payer BC ==
[~2018-03-26] MED LIST changes: -GADOBUTROL 7.5 MMOL/7.5 ML (GADAVIST) VIAL IV ONE
[2018-03-26 08:33] LABS: ABSOLUTE RETIC # 97 10e9/L (24-90); BASOPHILS % (AUTO) 0 % (0-10); EOSINOPHILS # (AUTO) 0.1 10^3/uL (0.0-0.3); EOSINOPHILS % (AUTO) 2 % (0-10); HEMATOCRIT 40 % (35-52); HEMOGLOBIN 14.3 G/DL (11.5-16.0); LYMPHOCYTES # (AUTO) 1.7 X 10^3 (1.0-4.0); LYMPHOCYTES % (AUTO) 35 % (12-44); MEAN CORPUSCULAR HEMOGLOBIN 33 PG (25-34); MEAN CORPUSCULAR HGB CONC 36 G/DL (32-36); MEAN CORPUSCULAR VOLUME 91 FL (80-99); MEAN PLATELET VOLUME 9.8 FL (7.4-10.4); MONOCYTES # (AUTO) 0.5 X 10^3 (0.0-1.0); MONOCYTES % (AUTO) 10 % (0-12); NEUTROPHILS # (AUTO) 2.6 X 10^3 (1.8-7.8); NEUTROPHILS % (AUTO) 53 % (42-75); PLATELET COUNT 150 10^3/uL (130-400); RED CELL DISTRIBUTION WIDTH 12.1 % (10.0-14.5); RETICULOCYTE % 2.21 % (0.50-2.40); WHITE BLOOD COUNT 4.8 10^3/uL (4.3-11.0)
[2018-03-26 09:11] LABS: BAND NEUTROPHILS 1 %; BASOPHILS % (MANUAL) 0 %; ELLIPT/OVALOCYTES SLIGHT; EOSINOPHILS % (MANUAL) 2 %; LYMPHOCYTES % (MANUAL) 36 %; MONOCYTES % (MANUAL) 7 %; NEUTROPHILS % (MANUAL) 54 %
== END ==
LOC: LAB 08:16
PROVIDERS: ATTEND Nurse Practitioner Family
DX: D72.819 Decreased white blood cell count, unspecified (principal)
CPT/HCPCS: 36415; 85007; 85027; 85045

== ENCOUNTER 2018-05-16 13:41 | Day surgery (SDC) | payer BC ==
[~2018-05-16] VITALS: Ht 172.7 cm; Wt 70.3 kg
[~2018-05-16 13:41] MED LIST changes: -OXYC-197 PO; +OXYC1TAB87 PO
[2018-05-16] MEDS ORDERED: ONDANSETRON 4 MG/2 ML (SDV) Z0FRAN ONE ×3 (14:03→17:37)
[2018-05-16 14:08] LABS: BASOPHILS % (AUTO) 0 % (0-10); EOSINOPHILS # (AUTO) 0.1 10^3/uL (0.0-0.3); EOSINOPHILS % (AUTO) 1 % (0-10); HEMATOCRIT 35 % (35-52); HEMOGLOBIN 12.1 G/DL (11.5-16.0); LYMPHOCYTES # (AUTO) 1.6 X 10^3 (1.0-4.0); LYMPHOCYTES % (AUTO) 26 % (12-44); MEAN CORPUSCULAR HEMOGLOBIN 32 PG (25-34); MEAN CORPUSCULAR HGB CONC 34 G/DL (32-36); MEAN CORPUSCULAR VOLUME 93 FL (80-99); MEAN PLATELET VOLUME 9.3 FL (7.4-10.4); MONOCYTES # (AUTO) 0.4 X 10^3 (0.0-1.0); MONOCYTES % (AUTO) 6 % (0-12); NEUTROPHILS # (AUTO) 4.3 X 10^3 (1.8-7.8); NEUTROPHILS % (AUTO) 68 % (42-75); PLATELET COUNT 193 10^3/uL (130-400); RED BLOOD COUNT 3.82 10^6/uL (4.35-5.85); RED CELL DISTRIBUTION WIDTH 11.9 % (10.0-14.5); WHITE BLOOD COUNT 6.3 10^3/uL (4.3-11.0)
[2018-05-16 14:20] LABS: INR 1.1 (0.8-1.4); PROTHROMBIN TIME PATIENT 13.7 SEC (12.2-14.7)
[2018-05-16 14:28] LABS: ALANINE AMINOTRANSFERASE 19 U/L (0-55); ALBUMIN 3.9 GM/DL (3.2-4.5); ALKALINE PHOSPHATASE 41 U/L (40-136); BILIRUBIN,TOTAL 0.7 MG/DL (0.1-1.0); BUN/CREATININE RATIO 26; CALCIUM 8.9 MG/DL (8.5-10.1); CARBON DIOXIDE 20 MMOL/L (21-32); CHLORIDE 105 MMOL/L (98-107); CREATININE SERUM 0.68 MG/DL (0.60-1.30); GFR ESTIMATED > 60; GLUCOSE 103 MG/DL (70-105); POTASSIUM 3.7 MMOL/L (3.6-5.0); SODIUM 136 MMOL/L (135-145); TOTAL PROTEIN 5.8 GM/DL (6.4-8.2)
[2018-05-16] MEDS ORDERED: ROCURONIUM 10 MG/ML 5 ML SYRINGE IV ONE (15:19)
[2018-05-16] MEDS ORDERED: proPOfol 200 MG/20 ML (DIPRIVAN) VIAL IV ONE (15:19)
[2018-05-16] MEDS ORDERED: SEVOFLURANE (ULTANE) 15 ML INHAL SOLN ONE ×6 (15:19→17:34)
[2018-05-16] MEDS ORDERED: LIDOCAINE PF 2% 2 ML (XYLOCAINE) VIAL ONE (15:19)
--- NOTE | 2018-05-16 15:19 | ED General ---
General Chief Complaint: Orthopedic Problems Stated Complaint: DOUBLE MASECTOMY BLEEDING Nursing Triage Note: PT PRESENTS TO ER WITH COMPLAINT OF POST OP BLEEDING. PT HAD DOUBLE MASECTOMY 05/06/18 AT [facility]. PT STATES SHE WAS HAVING SEROUS DRAINAGE IN HER BENJAMIN DRAINS. 30 MINUTES [employer]MENT PT STATES DRAINAGE TURNED TO BLOOD Nursing Sepsis Screen: No Definite Risk Source of Information: Patient Exam Limitations: No Limitations History of Present Illness Date Seen by Provider: May 16, 2018 Time Seen by Provider: 13:42 Initial Comments This 37-year-old woman presents to emergency room with complications from her mastectomy site. She underwent bilateral mastectomy for breast cancer at [facility] on May 06. She had a right breast cancer and left mastectomy was performed prophylactically. She had been having small quantities of serosanguineous drainage from her drains until today when she suddenly began to have significant quantities of blood in the 2 drains on the left. She is also swelling beneath the left breast operative site. She does have pre-pectoral spacers in place. She contacted the plastic surgeon center lead consultant at [facility] who is Dr. Villegas who directed her to the ER. Patient's significant other reports he already has emptied about 100 mL of blood from the drain bulbs. Allergies and Home Medications Allergies Coded Allergies: No Known Drug Allergies (Unverified , 08/04/14) Home Medications Docusate Sodium 100 Mg Capsule, 100 MG PO BID PRN for CONSTIPATION-1ST LINE Prescribed by: LESLY KAUR on 11/13/17 110 Ibuprofen 600 Mg Tablet, 600 MG PO Q6H Prescribed by: LESLY AKUR on 11/13/17 1104 Levonorgestrel-Ethin Estradiol 1 Each Tablet, 1 EACH PO DAILY Prescribed by: LESLY KAUR on 11/20/17 0921 Levothyroxine Sodium 75 Mcg Tablet, 75 MCG PO DAILY, (Reported) [Benzocaine/Menthol] 56 ML AEROSOL, 56 ML TP UD PRN for PAIN-MILD EXTERNAL USE ONLY Prescribed by: LESLY KAUR on 11/13/17 1104 Patient Home Medication List Home Medication List Reviewed: Yes Review of Systems Review of Systems Constitutional: no symptoms reported EENTM: no symptoms reported Respiratory: no symptoms reported Cardiovascular: no symptoms reported Gastrointestinal: no symptoms reported Genitourinary: no symptoms reported : No Musculoskeletal: see HPI Skin: see HPI Psychiatric/Neurological: No Symptoms Reported Hematologic/Lymphatic: See HPI Immunological/Allergic: no symptoms reported Past Ubfgtlr-Wizzyl-Nfzcvx Hx Past Med/Social Hx: Reviewed and Corrections made Patient Social History Alcohol Use: Denies Use Recreational Drug Use: No Smoking Status: Never a Smoker Recent Foreign Travel: No Contact w/Someone Who Travel: No Recent Infectious Disease Expo: No Recent Hopitalizations: Yes (DOUBLE MASECTOMY 05/06/18) Immunizations Up To Date Tetanus Booster (TDap): Less than 5yrs PED Vaccines UTD: No Seasonal Allergies Seasonal Allergies: No Past Medical History Surgeries: Yes (left hip pinning, BREAST AUGMENTATION) Adenoidectomy, Breast (bilateral mastectomy, lymph node dissection on the right) , Hysterectomy, Tonsillectomy Respiratory: No Cardiac: Yes (pulse runs in the 40's-her normal) Neurological: No Reproductive Disorders: No Genitourinary: No Gastrointestinal: Yes (RECTOCELE) Musculoskeletal: No Endocrine: Yes Hypothyroidsim HEENT: No Cancer: No Psychosocial: No Integumentary: No Blood Disorders: No (anemia in past) Adverse Reaction/Blood Tranf: No Family Medical History Congenital heart disease 19 FATHER (FATHER AT 51 , stroke also) Physical Exam Vital Signs Vital Signs - First Documented 05/16/18 13:46 Pulse 76 Resp 20 B/P (MAP) 113/80 (91) Pulse Ox 100 O2 Delivery Room Air Capillary Refill : Less Than 3 Seconds Height, Weight, BMI Height: 5'8.00" Weight: 155lbs. 0.0oz. [id number]; 24.3 BMI Method:Stated General Appearance: WD/WN, Anxious HEENT: PERRL/EOMI, Normal ENT Inspection Neck: Normal Inspection Respiratory: Lungs Clear, Normal Breath Sounds, No Accessory Muscle Use, No Respiratory Distress Cardiovascular: Regular Rate, Rhythm, No Edema, No Murmur, Normal Peripheral Pulses Extremity: Normal Inspection Neurologic/Psychiatric: Alert, Oriented x3, No Motor/Sensory Deficits, Normal Mood/Affect, poiser II-XII Norm as Tested Skin: Warm/Dry, Pallor, Other (incisions clean, dry and intact) Comments Left breast surgical site is swelling and becoming tight. There is some tenderness. Progress/Results/Core Measures Suspected Sepsis Recent Fever Within 48 Hours: No Infection Criteria Present: None New/Unexplained Altered Menta: No Sepsis Screen: No Definite Risk SIRS Temperature: Pulse: 76 Respiratory Rate: 20 Laboratory Tests 05/16/18 14:00: White Blood Count 6.3 Blood Pressure 113 /80 Mean: 91 Laboratory Tests 05/16/18 14:00: Creatinine 0.68, INR Comment 1.1, Platelet Count 193, Total Bilirubin 0.7 Results/Orders Lab Results Laboratory Tests Test 05/16/18 14:00 Range/Units White Blood Count 6.3 4.3-11.0 10^3/uL Red Blood Count 3.82 L 4.35-5.85 10^6/uL Hemoglobin 12.1 11.5-16.0 G/DL Hematocrit 35 35-52 % Mean Corpuscular Volume 93 80-99 FL Mean Corpuscular Hemoglobin 32 25-34 PG Mean Corpuscular Hemoglobin Concent 34 32-36 G/DL Red Cell Distribution Width 11.9 10.0-14.5 % Platelet Count 193 130-400 10^3/uL Mean Platelet Volume 9.3 7.4-10.4 FL Neutrophils (%) (Auto) 68 42-75 % Lymphocytes (%) (Auto) 26 12-44 % Monocytes (%) (Auto) 6 0-12 % Eosinophils (%) (Auto) 1 0-10 % Basophils (%) (Auto) 0 0-10 % Neutrophils # (Auto) 4.3 1.8-7.8 X 10^3 Lymphocytes # (Auto) 1.6 1.0-4.0 X 10^3 Monocytes # (Auto) 0.4 0.0-1.0 X 10^3 Eosinophils # (Auto) 0.1 0.0-0.3 10^3/uL Basophils # (Auto) 0.0 0.0-0.1 10^3/uL Prothrombin Time 13.7 12.2-14.7 SEC INR Comment 1.1 0.8-1.4 Activated Partial Thromboplast Time 35 24-35 SEC Sodium Level 136 135-145 MMOL/L Potassium Level 3.7 3.6-5.0 MMOL/L Chloride Level 105 98-107 MMOL/L Carbon Dioxide Level 20 L 21-32 MMOL/L Anion Gap 11 5-14 MMOL/L Blood Urea Nitrogen 18 7-18 MG/DL Creatinine 0.68 0.60-1.30 MG/DL Estimat Glomerular Filtration Rate > 60 BUN/Creatinine Ratio 26 Glucose Level 103 70-105 MG/DL Calcium Level 8.9 8.5-10.1 MG/DL Corrected Calcium 9.0 8.5-10.1 MG/DL Total Bilirubin 0.7 0.1-1.0 MG/DL Aspartate Amino Transf (AST/SGOT) 19 5-34 U/L Alanine Aminotransferase (ALT/SGPT) 19 0-55 U/L Alkaline Phosphatase 41 40-136 U/L Total Protein 5.8 L 6.4-8.2 GM/DL Albumin 3.9 3.2-4.5 GM/DL My Orders Orders - NICHOLAS MARIE MD Cbc With Automated Diff (05/16/18 13:45) Comprehensive Metabolic Panel (05/16/18 13:45) Protime With Inr (05/16/18 13:45) Partial Thromboplastin Time (05/16/18 13:45) Saline Lock/Iv-Start (05/16/18 13:45) Red Cells Leukocytes Reduced (05/16/18 13:45) Type And Screen (05/16/18 13:45) Ondansetron Injection (Zofran Injectio (05/16/18 14:03) Medications Given in ED Current Medications Medications Dose Ordered Sig/Roberto Route Start Time Stop Time Status Last Admin Dose Admin Ondansetron HCl 4 mg STK-MED ONCE .ROUTE 05/16/18 14:03 05/16/18 14:09 DC 05/16/18 14:06 4 MG Vital Signs/I&O 05/16/18 05/16/18 13:46 15:46 Pulse 76 79 Resp 20 20 B/P (MAP) 113/80 (91) 119/85 Pulse Ox 100 100 O2 Delivery Room Air Room Air Capillary Refill : Less Than 3 Seconds Blood Pressure Mean: 91 Progress Note : Progress Note Patient continued to produce blood from the drain sites. A proximally 100 mL was drained at home. An additional 250 was trade in the ER. Patient again produced another 100 after that. I discussed the case with both Dr. Brewster and Dr. Villegas. They conferred together and decided to take the patient to surgery for washout. Patient became hypotensive with a systolic blood pressure as low as 68. She did rebound with IV fluid resuscitation. We called for and crossmatch of 2 units and for emergent O- blood to be available. Patient did not require transfusion. Patient was taken to the OR from the ER. Dr. Brewster did promptly present to the emergency room to manage the case. Departure Communication (Admissions) Time/Spoke to Admitting Phy: 14:06 Dr. Brewster Impression Primary Impression: Postoperative hemorrhage Additional Impression: Hypotension Qualified Codes: I95.9 - Hypotension, unspecified Disposition: 09 ADMITTED INPATIENT Condition: Improved Admissions Decision to Admit Reason: Admit from ER (General) Decision to Admit/Date: May 16, 2018 Time/Decision to Admit Time: 14:06 Departure-Patient Inst. Referrals: PAMELA BOO MD (PCP) Primary Care Physician LESLY KAUR DO (Family) Primary Care Physician NICHOLAS MARIE MD May 16, 2018 15:19
[2018-05-16] MEDS ORDERED: MIDAZOLAM 2 MG/2 ML (VERSED) VIAL ONE (15:20)
[2018-05-16] MEDS ORDERED: fentaNYL INJECTION 100 MCG/2 ML AMP ONE ×2 (15:20→17:28)
--- NOTE | 2018-05-16 15:22 | History & Physical-Surgical ---
History of Present Illness History of Present Illness Reason for visit/HPI Chief complaint postoperative bleeding from left breast. Patient is a 37-year-old female with recent bilateral mastectomy with right sentinel node biopsy and removal of implants with tissue upholstery auto trimmer placement. Patient states she's been doing well postoperatively. Patient had surgery on May 06, 2018 at [facility]. She states that she is not had any issues. She's had minimal output from the drains. She stated today at home she had a change from serous drainage to cheryl blood from the left-sided drains. This was continuing to bleed and she got out approximately 100 mL of cheryl blood over very minimal. Of time. She was concerned and was brought to the emergency department. Patient emergency department was having significant swelling of the left chest and having more discomfort and tight feeling. She is continuing to have cheryl blood into the drain. Over approximately an hour she has had approximately 450 mL of blood in the drains. She did have an episode where her blood pressure dropped below 80 mmHg systolic and patient was diaphoretic and pale. Her blood pressure is approximately 115 mmHg systolic at this time. Her heart rates in the 70s. I gave a call to her plastic surgeon Dr. Villegas at [facility]. Had discussion with him and he feels that we should explore the left breast. Patient with some sweats. She does have a little bit of dizziness with a short period of time when her blood pressure dropped not realizing what was going on. She started a little bit better but still a considerable change in swelling in the left side being greater than the right. Date of Admission t Date Seen by Provider: May 16, 2018 Time Seen by Provider: 15:22 I consulted on this patient on 05/16/18 15:10 Attending Physician Admitting Physician Anh Jernigan MD Consult Allergies and Home Medications Allergies Coded Allergies: No Known Drug Allergies (Unverified , 08/04/14) Home Medications Docusate Sodium 100 Mg Capsule, 100 MG PO BID PRN for CONSTIPATION-1ST LINE Prescribed by: LESLY KAUR on 11/13/17 1104 Ibuprofen 600 Mg Tablet, 600 MG PO Q6H Prescribed by: LESLY KAUR on 11/13/17 1104 Levonorgestrel-Ethin Estradiol 1 Each Tablet, 1 EACH PO DAILY Prescribed by: LESLY KAUR on 11/20/17 0921 Levothyroxine Sodium 75 Mcg Tablet, 75 MCG PO DAILY, (Reported) [Benzocaine/Menthol] 56 ML AEROSOL, 56 ML TP UD PRN for PAIN-MILD EXTERNAL USE ONLY Prescribed by: LESLY KAUR on 11/13/17 1104 Patient Home Medication List Home Medication List Reviewed: Yes Past Fyjbgrb-Sotiya-Wjoyhx Hx Patient Social History Alcohol Use: Denies Use Recreational Drug Use: No Smoking Status: Never a Smoker Recent Foreign Travel: No Contact w/Someone Who Travel: No Recent Infectious Disease Expo: No Recent Hopitalizations: Yes (DOUBLE MASECTOMY 05/06/18) Immunizations Up To Date Tetanus Booster (TDap): Less than 5yrs PED Vaccines UTD: No Seasonal Allergies Seasonal Allergies: No Surgeries History of Surgeries: Yes (left hip pinning, BREAST AUGMENTATION, b/l mastectomy with right sentinel node biopsy and placement of tissue expanders) Surgeries: Adenoidectomy, Hysterectomy, Tonsillectomy Respiratory History of Respiratory Disorde: No Cardiovascular History of Cardiac Disorders: Yes (pulse runs in the 40's-her normal) Neurological History of Neurological Disord: No Reproductive System Hx Reproductive Disorders: No Gastrointestinal History of Gastrointestinal Di: Yes (RECTOCELE) Musculoskeletal History of Musculoskeletal Dis: No Endocrine History of Endocrine Disorders: Yes Endocrine Disorders: Hypothyroidsim HEENT History of HEENT Disorders: No Cancer History of Cancer: No Psychosocial History of Psychiatric Problem: No Integumentary History of Skin or Integumenta: No Blood Transfusions History of Blood Disorders: No (anemia in past) Adverse Reaction to a Blood Tr: No Family Medical History Significant Family History: No Pertinent Family Hx Family Medial History: Congenital heart disease 19 FATHER (FATHER AT 51 , stroke also) Review of Systems Constitutional: diaphoresis EENTM: no symptoms reported Respiratory: no symptoms reported Cardiovascular: no symptoms reported Gastrointestinal: no symptoms reported Genitourinary: no symptoms reported Musculoskeletal: other (left breast swelling) Skin: no symptoms reported Psychiatric/Neurological: No Symptoms Reported Physical Exam Vital Signs Vital Signs - First Documented 05/16/18 13:46 Pulse 76 Resp 20 B/P (MAP) 113/80 (91) Pulse Ox 100 O2 Delivery Room Air Capillary Refill : Less Than 3 Seconds Height, Weight, BMI Height: 5'8.00" Weight: 155lbs. 0.0oz. 70.349285eb; 24.3 BMI Method:Stated General Appearance: No Apparent Distress, Anxious HEENT: PERRL/EOMI Neck: Non Tender, Supple Respiratory: No Accessory Muscle Use, No Respiratory Distress Cardiovascular: Regular Rate, Rhythm Gastrointestinal: Non Tender, Soft Rectal: Deferred Back: Normal Inspection Extremity: Normal Inspection, Non Tender, No Calf Tenderness Neurologic/Psychiatric: Alert, Oriented x3, No Motor/Sensory Deficits, Normal Mood/Affect, medical staffing coordinator II-XII Norm as Tested Skin: Pallor Lymphatic: No Adenopathy Comments Left breast round upholstery auto trimmer with swelling in the subcutaneous tissue around the upholstery auto trimmer up to the level of clavicle Right surgical drains are serous Left surgical drains are cheryl blood Data Review Labs Laboratory Tests 05/16/18 14:00: White Blood Count 6.3, Red Blood Count 3.82L, Hemoglobin 12.1, Hematocrit 35, Mean Corpuscular Volume 93, Mean Corpuscular Hemoglobin 32, Mean Corpuscular Hemoglobin Concent 34, Red Cell Distribution Width 11.9, Platelet Count 193, Mean Platelet Volume 9.3, Neutrophils (%) (Auto) 68, Lymphocytes (%) (Auto) 26, Monocytes (%) (Auto) 6, Eosinophils (%) (Auto) 1, Basophils (%) (Auto) 0, Neutrophils # (Auto) 4.3, Lymphocytes # (Auto) 1.6, Monocytes # (Auto) 0.4, Eosinophils # (Auto) 0.1, Basophils # (Auto) 0.0, Prothrombin Time 13.7, INR Comment 1.1, Activated Partial Thromboplast Time 35, Sodium Level 136, Potassium Level 3.7, Chloride Level 105, Carbon Dioxide Level 20L, Anion Gap 11 , Blood Urea Nitrogen 18, Creatinine 0.68, Estimat Glomerular Filtration Rate > 60, BUN/Creatinine Ratio 26, Glucose Level 103, Calcium Level 8.9, Corrected Calcium 9.0, Total Bilirubin 0.7, Aspartate Amino Transf (AST/SGOT) 19, Alanine Aminotransferase (ALT/SGPT) 19, Alkaline Phosphatase 41, Total Protein 5.8L, Albumin 3.9 Assessment/Plan Assessment/Plan Admission Diagonsis Postoperative bleeding from left breast breast cancer s/p bilateral mastectomy with right sentinel node biopsy and placement of expanders bilaterally with removal of breast implants Patient with approximately a 450 mL of cheryl blood from the left breast at approximately one hour's time. This is continuing to have drainage. I discussed with her plastic surgeon at [facility] who feels this should be explored to try to control the bleeding and to help reduce chance of infection. I discussed with the patient risk and benefits of exploration of the left breast possible removal of upholstery auto trimmer and all other indicated procedures. Patient wishes to proceed. Consent to be obtained. To or for exploration Admission Status: Observation Assessment/Plan Postoperative bleeding from left breast breast cancer s/p bilateral mastectomy with right sentinel node biopsy and placement of expanders bilaterally with removal of breast implants Patient with approximately a 450 mL of cheryl blood from the left breast at approximately one hour's time. This is continuing to have drainage. I discussed with her plastic surgeon at [facility] who feels this should be explored to try to control the bleeding and to help reduce chance of infection. I discussed with the patient risk and benefits of exploration of the left breast possible removal of upholstery auto trimmer and all other indicated procedures. Patient wishes to proceed. Consent to be obtained. To or for exploration VLAD OH DO May 16, 2018 15:22
[2018-05-16] MEDS ORDERED: ceFAZolin INJECTION 1,000 MG in NS (IVPB) 50 ML IV ONE (15:30)
[2018-05-16] MEDS ORDERED: ceFAZolin 1,000 MG/10 ML (ANCEF) VIAL ONE (15:33)
[2018-05-16] MEDS ORDERED: NS (IVPB) 50 ML ONE (15:33)
[2018-05-16] MEDS ORDERED: LIDOCAINE 1% INJ 20 ML 20 ML VIAL ONE (15:36)
[2018-05-16] MEDS ORDERED: BUPIVACAINE 0.5% 30 ML (SENSORCAINE) VIAL ONE (15:36)
[2018-05-16] MEDS ORDERED: DEXAMETHASONE 10 MG/ML (DECADRON) 1 ML VIAL ONE (15:58)
[2018-05-16] MEDS ORDERED: NEOSTIGMINE 1 MG/ML 5 ML SYRINGE ONE (15:59)
[2018-05-16] MEDS ORDERED: GLYCOPYRROLATE 0.2 MG/ML (ROBINUL) 2 ML VIAL ONE (15:59)
[2018-05-16] MEDS ORDERED: SCOPOLAMINE 1.5 MG (TRANSDERM-SCOP) PATCH ONE (16:01)
[2018-05-16] MEDS: LACTATED RINGERS 1,000 ML IV PRN ×3 (16:02→17:40)
[2018-05-16] MEDS ORDERED: ALBUMIN 25% 25 GM/100 ML 100 ML IV ONE (16:55)
[2018-05-16] MEDS ORDERED: HYDROmorphone 2 MG/ML VIAL (DILAUDID) ONE (17:39)
--- NOTE | 2018-05-16 17:58 | Progress Note-Post Operative ---
Post-Operative Progess Note Surgeon (s)/Shotgun Shell Assembly Machine Operator (s) Surgeon VLAD OH DO Shotgun Shell Assembly Machine Operator: na Pre-Operative Diagnosis postoperative hemorrhage Post-Operative Diagnosis same Procedure & Operative Findings Date of Procedure 05/16/18 Procedure Performed/Findings exploration left breast, removal of tissue web publisher, evacuation of hematoma, control of pectoral major muscle bleed. Anesthesia Type gen Estimated Blood Loss Estimated blood loss (mL): 500 mL of clot and blood Specimens/Packing Specimens Removed none VLAD OH DO May 16, 2018 17:58
[2018-05-16] MEDS ORDERED: morphine INJ 10 MG/ML 1ML (SYR OR VIAL) IVP PRN (18:00)
[2018-05-16] MEDS ORDERED: ONDANSETRON 4 MG/2 ML (SDV) Z0FRAN IVP PRN (18:00)
[2018-05-16] MEDS ORDERED: HYDROcodone/APAP 5 MG/325 MG (LORTAB) TAB PO PRN (18:00)
[2018-05-16] MEDS ORDERED: fentaNYL INJECTION 100 MCG/2 ML AMP IVP ONE (18:15)
[2018-05-16] MEDS ORDERED: PROMETHAZINE INJ 25 MG/ML (PHENERGAN) AMP IVP ONE (18:15)
[2018-05-16] MEDS ORDERED: HYDROmorphone 2 MG/ML VIAL (DILAUDID) IV ONE (18:15)
[2018-05-16] MEDS ORDERED: MEPERIDINE (DEMEROL) INJ 50 MG/ML IVP ONE (18:15)
[2018-05-16 19:00] VITALS: BP 126/58
[2018-05-16] MEDS ORDERED: NS IV 1000 ML 2,000 ML ONE (19:08)
[2018-05-16 19:15] VITALS: BP 137/55
[2018-05-16 19:30] VITALS: BP 149/72
[2018-05-16] MEDS ORDERED: morphine INJ 4 MG/ML 1 ML (VIAL/SYRINGE) ONE (19:33)
[2018-05-16 19:45] VITALS: BP 124/74
[2018-05-16] MEDS ORDERED: oxyCODONE/APAP 5/325MG (PERCOCET 5) TABLET ONE (19:49)
[2018-05-16] MEDS: oxyCODONE/APAP 5/325MG (PERCOCET 5) TABLET PO PRN (19:56)
[2018-05-16 20:00] VITALS: BP 152/69
[2018-05-16] MEDS: ONDANSETRON 4 MG/2 ML (SDV) Z0FRAN IVP PRN ×2 (20:12→20:13)
[2018-05-16 20:30] VITALS: BP 145/69
[2018-05-16] MEDS: LACTATED RINGERS 1,000 ML IV SCH (22:20)
[2018-05-17] VITALS: BP 114/67
[2018-05-17] MEDS: ceFAZolin INJECTION 1,000 MG in NS (IVPB) 50 ML IV SCH ×2 (00:21→07:15)
--- NOTE | 2018-05-17 03:06 | Progress Note ---
Subjective Date Seen by Provider: May 17, 2018 Time Seen by Provider: 03:01 Subjective/Events-last exam doing well. minimal drainage left breast drains. pain controlled. Denies any issues. Denies n/v fever sweats chills shortness of breath or chest pain. Objective Exam Vital Signs Date Time Temp Pulse Resp B/P (MAP) Pulse Ox O2 Delivery O2 Flow Rate FiO2 05/17/18 01:00 70 05/17/18 00:00 70 19 114/67 (83) 97 Room Air 05/16/18 20:30 61 24 145/69 (94) 100 Room Air 05/16/18 20:00 60 20 152/69 (96) 100 Room Air 05/16/18 19:45 75 10 124/74 (91) 99 Room Air 05/16/18 19:30 79 10 149/72 (97) 100 Room Air 05/16/18 19:15 62 17 137/55 (82) 100 Room Air 05/16/18 19:00 59 15 126/58 (80) 99 Room Air 05/16/18 19:00 59 05/16/18 15:46 79 20 119/85 100 Room Air 05/16/18 13:46 76 20 113/80 (91) 100 Room Air I & O 05/17/18 07:00 Intake Total 4150 ml Output Total 500 ml Balance 3650 ml Capillary Refill : Less Than 3 Seconds General Appearance: No Apparent Distress, WD/WN HEENT: PERRL/EOMI, Normal ENT Inspection Neck: Normal Inspection Respiratory: Lungs Clear, Normal Breath Sounds, No Accessory Muscle Use, No Respiratory Distress Cardiovascular: Regular Rate, Rhythm, No Edema Gastrointestinal: soft Extremity: Normal Inspection Neurologic/Psychiatric: Alert, Oriented x3, No Motor/Sensory Deficits, Normal Mood/Affect, diesel instructor II-XII Norm as Tested Skin: Warm/Dry, Pallor, Other (left breast no swelling or fluctuance no signs of infection, drain serosang, right breast drains serous) Lymphatic: No Adenopathy Results Lab Laboratory Tests 05/16/18 14:00: White Blood Count 6.3, Red Blood Count 3.82L, Hemoglobin 12.1, Hematocrit 35, Mean Corpuscular Volume 93, Mean Corpuscular Hemoglobin 32, Mean Corpuscular Hemoglobin Concent 34, Red Cell Distribution Width 11.9, Platelet Count 193, Mean Platelet Volume 9.3, Neutrophils (%) (Auto) 68, Lymphocytes (%) (Auto) 26, Monocytes (%) (Auto) 6, Eosinophils (%) (Auto) 1, Basophils (%) (Auto) 0, Neutrophils # (Auto) 4.3, Lymphocytes # (Auto) 1.6, Monocytes # (Auto) 0.4, Eosinophils # (Auto) 0.1, Basophils # (Auto) 0.0, Prothrombin Time 13.7, INR Comment 1.1, Activated Partial Thromboplast Time 35, Sodium Level 136, Potassium Level 3.7, Chloride Level 105, Carbon Dioxide Level 20L, Anion Gap 11 , Blood Urea Nitrogen 18, Creatinine 0.68, Estimat Glomerular Filtration Rate > 60, BUN/Creatinine Ratio 26, Glucose Level 103, Calcium Level 8.9, Corrected Calcium 9.0, Total Bilirubin 0.7, Aspartate Amino Transf (AST/SGOT) 19, Alanine Aminotransferase (ALT/SGPT) 19, Alkaline Phosphatase 41, Total Protein 5.8L, Albumin 3.9 Assessment/Plan Assessment/Plan Assessment/Plan Postoperative bleeding from left breast breast cancer s/p bilateral mastectomy with right sentinel node biopsy and placement of expanders bilaterally with removal of breast implants s/p left breast exploration, removal of tissue site safety manager, control of pectoralis major muscle bleed, evacuation hematoma. Patient doing well. No signs of further bleeding. Feel it is controlled. CBC ordered for this morning. Patient likely dc later this morning if hgb okay. Patient and in agreement with plan Final Diagnosis Postoperative bleeding from left breast R breast cancer s/p bilateral mastectomy with right sentinel node biopsy and placement of expanders bilaterally with removal of breast implants s/p left breast exploration, removal of tissue site safety manager, control of pectoralis major muscle bleed, evacuation hematoma. VLAD OH DO May 17, 2018 03:06
--- NOTE | 2018-05-17 03:10 | Discharge Inst-Simple/Standard ---
Discharge Inst-Standard Patient Instructions/Follow Up Plan of Care/Instructions/FU: [address] Brewster if you need local follow up after seeing your plastic surgeon. Activity as Tolerated: No Discharge Diet: Regular Diet Other Inst to Patient Follow up Appt: Make appointment for [address] Brewster if you need follow up after seeing your plastic surgeon. Instructions: No lifting greater than 10 pounds. No strenuous activity. Use incentive spirometer at home as directed. No Smoking Skin/Wound Care: Keep areas clean and dry as you did previous to surgery. Maintain drains as you did previously. Symptoms to Report: Appetite Changes, Extremity Discoloration, Numbness/Tingling, Swelling Increased , Bleeding Excessive, Eyesight Changes, Pain Increased, Urine Color Change, Constipation(Persistent), Fever over 101 degree F, Pain/Pressure in chest, Urinating Difficulty, Cough Up/Vomit Blood, Heart Beat Irreg/Pounding, Pain/ Pressure in jaw, Vaginal Bleeding Increase, Cramps in feet or legs, Lightheadedness, Pain/Pressure in shoulder, Diarrhea(Persistent), Memory Changes Suddenly, Questions/Concerns, Weight gain consecutive days, Dizziness/ Fainting, Nausea/Vomiting, Shortness of Breath, Weight gain over 2 pounds If questions or concerns contact your physician Or seek help at emergency department. VLAD BREWSTER DO May 17, 2018 03:10
[2018-05-17 03:30] LABS: HEMOGLOBIN 7.9 G/DL (11.5-16.0); MEAN PLATELET VOLUME 9.4 FL (7.4-10.4); RED BLOOD COUNT 2.43 10^6/uL (4.35-5.85); RED CELL DISTRIBUTION WIDTH 11.5 % (10.0-14.5); WHITE BLOOD COUNT 8.1 10^3/uL (4.3-11.0)
[2018-05-17 04:00] VITALS: BP 121/59
[2018-05-17] MEDS: LACTATED RINGERS 1,000 ML IV SCH (04:11)
[2018-05-17] MEDS ORDERED: ceFAZolin 1,000 MG/10 ML (ANCEF) VIAL ONE (07:08)
[2018-05-17] MEDS ORDERED: NS (IVPB) 50 ML ONE (07:08)
[2018-05-17] MEDS: oxyCODONE/APAP 5/325MG (PERCOCET 5) TABLET PO PRN (07:58)
--- NOTE | 2018-05-17 11:28 | Anesthesia-General Post-Op ---
General Patient Condition Mental Status/LOC: Same as Preop Cardiovascular: Satisfactory Nausea/Vomiting: Absent Respiratory: Satisfactory Pain: Controlled Complications: Absent Post Op Complications Complications None Follow Up Care/Instructions Patient Instructions None needed. Anesthesia/Patient Condition Patient Condition Patient is doing well, no complaints, stable vital signs, no apparent adverse anesthesia problems. No complications reported per nursing. [place] [facility] [place]: Yes BHARAT PETERS CRNA May 17, 2018 11:28
--- NOTE | 2018-05-18 14:15 | OPERATIVE REPORT ---
DATE OF SERVICE: 05/16/2018 PREOPERATIVE DIAGNOSIS: Postoperative hemorrhage of left breast. POSTOPERATIVE DIAGNOSIS: Postoperative hemorrhage of left breast. PROCEDURE: Exploration of left breast with removal of tissue house player, evacuation of hematoma and control of pectoral major muscle bleeding. SURGEON: Jesús Brewster DO ANESTHESIA: General. ESTIMATED BLOOD LOSS: 5 mL of clot and blood. INDICATIONS: The patient is a 37-year-old female with a diagnosis of right breast cancer. She was at [facility] (formerly [facility]) on 05/06/2018 and had bilateral mastectomy with right sentinel node biopsy and placement of tissue expanders bilaterally. She today was lying in bed and had cheryl blood going into drains on the left side and had swelling of the left chest and pain. The patient had approximately 450 mL of cheryl blood within an hour draining with significant swelling into the left chest as well. I discussed with the patient and also with her plastic surgeon at [facility] (formerly [facility]) and we all felt it was necessary to explore and control the bleeding and possible removal of the tissue house player on the left breast. The patient understands the risks and benefits and wishes to proceed. Consent was signed in the chart. PROCEDURE IN DETAIL: The patient was taken to the operating suite. She was prepped and draped in sterile fashion. Surgical pause was performed. Previous incision was opened with a 15 blade scalpel and divided. A large amount of clot began erupting through the incision. The clot was evacuated and the left breast was continued to be irrigated with copious amounts of irrigation for improving visualization. Once all the clot was evacuated, there was continued to have some fresh bleeding into the left breast area. Going in a circumferential fashion, all the skin flaps were intact without any active bleeding from the skin flaps. The drains were identified, which were placed circumferentially, which all of the drains where the tracts were. There was no active bleeding from these sites as well. The tissue house player was then continued to be elevated, but no clear source of bleeding was able to be identified. Therefore, we removed the tissue house player at this point. Once removing the tissue house player, the pectoral major where her previous subpectoral implant was removed from where it was sewn together, this was visualized. On the lateral aspect of this, there was a muscle tear where the biological mesh was secured. The muscle was torn in this area and had a slight active ooze from this lateral aspect of that incision. Cautery was used to achieve hemostasis with this and the wound, we then irrigated approximately 5 times without any other visualization of any active bleeding. The pectoral muscle was flat on the chest wall without any evidence of any subpectoral hematoma. Again, the wound was irrigated again noting no active bleeding. At this point, the subcutaneous tissues were then reapproximated using 3-0 Vicryl. The skin was then closed using 4-0 Monocryl in a running subcuticular fashion. Sterile bandage was applied. The patient tolerated the procedure well without any complications. She was taken to recovery room in stable condition. Job ID: [id number] DocumentID: [id number] Dictated Date: 05/18/2018 11:35:53 Pointer Helper Date: 05/18/2018 14:14:56 Dictated By: DO ANKITA HALL
== END 2018-05-17 08:12 | disposition home or self-care (01) ==
LOC: EDUNIT# 13:41 → ER 13:42 → ICU 15:14 → SDC 15:14
PROVIDERS: ATTEND Surgery
DX: N99.820 Postprocedural hemorrhage of a genitourinary system organ or structure following a genitourinary system procedure (principal); T85.49XA Other mechanical complication of breast prosthesis and implant, initial encounter; Z85.3 Personal history of malignant neoplasm of breast; E03.9 Hypothyroidism, unspecified; R00.1 Bradycardia, unspecified
CPT/HCPCS: 36415; 80053; 85025; 85027; 85610; 85730; 86850; 86900; 86901; 86920; 96374

== ENCOUNTER 2018-06-12 10:21 | Outpatient (RCR) | payer BC | END 2018-07-02 16:02 | disposition home or self-care (01) | PROVIDERS: ATTEND Nurse Practitioner Family | DX: M79.621 Pain in right upper arm (principal); Z85.3 Personal history of malignant neoplasm of breast; Z90.13 Acquired absence of bilateral breasts and nipples ==

== ENCOUNTER 2018-09-29 09:02 | Outpatient (RCR) | payer BC | END 2018-12-28 | disposition home or self-care (01) | LOC: ONC 09:02 | PROVIDERS: ATTEND Internal Medicine Hematology & Oncology | DX: C50.411 Malignant neoplasm of upper-outer quadrant of right female breast (principal); E03.9 Hypothyroidism, unspecified; F98.8 Other specified behavioral and emotional disorders with onset usually occurring in childhood and adolescence; R00.1 Bradycardia, unspecified; F32.9 Major depressive disorder, single episode, unspecified; Z79.899 Other long term (current) drug therapy; Z90.13 Acquired absence of bilateral breasts and nipples | CPT/HCPCS: 99214 ==

== ENCOUNTER → 2018-10-12 | Outpatient (CLI) | payer BC ==
[~2018-10-12] MED LIST changes: +BARIUM SUSPENSION 2.1% (VANILLA SILQ) 450 ML PO ONE; +CATHETER FLUSH 10 ML SYR IV PRN; +IOHEXOL 350 MG/ML 100 ML (OMNIPAQUE 350) VIAL IV ONE; +NS 100 ML (IVPB) BAG IV ONE; +RECEIVED CONTRAST (Hold Metformin) IV SCH
--- NOTE | 2018-10-12 10:09 | Diagnostic Imaging Report ---
PROCEDURE: CT chest with contrast, CT abdomen and pelvis with and without contrast. TECHNIQUE: Pre and post intravenous contrast axial imaging of the abdomen and pelvis and post contrast axial imaging of the chest were performed. INDICATION: Right breast carcinoma and nausea. Patient is status post double mastectomy. COMPARISON: No prior CT studies are available for comparison. CT CHEST: Postop changes of bilateral mastectomy with bilateral breast reconstruction is noted. No internal mammary lymphadenopathy is detected. No axillary lymphadenopathy is detected. There are surgical clips in the axillae bilaterally. No mediastinal or hilar lymphadenopathy is detected. There is no pericardial or pleural fluid detected. No pulmonary infiltrates, nodules or masses are seen. The bony structures are unremarkable. IMPRESSION: Unremarkable CT of the chest. No thoracic lymphadenopathy or evidence of pulmonary metastatic disease is identified. CT ABDOMEN AND PELVIS: No discrete liver mass is identified. Gallbladder is unremarkable. No biliary duct dilatation is seen. Pancreas and spleen are unremarkable. No adrenal mass is detected. The right kidney contains a tiny nonobstructing calculus in the lower pole. There are also small cortical low densities consistent with small cysts. Aorta is non-aneurysmal. There are small lymph nodes in the central retroperitoneum. No pathologically enlarged nodes are seen. Small and large bowel loops are normal in caliber. There is no obstruction. There is no ascites. Bladder and uterus are unremarkable. No inguinal or iliac lymphadenopathy is seen. Postsurgical changes to the left iliac bone are noted. Bones appear nonacute. No osteolytic or blastic lesions are seen. IMPRESSION: Essentially unremarkable CT of the abdomen and pelvis. No abdominal or pelvic lymphadenopathy or evidence of metastatic disease is identified. Dictated by: Dictated on workstation # [id number]
== END ==
LOC: RAD 09:12
PROVIDERS: ATTEND Internal Medicine Hematology & Oncology
DX: C50.911 Malignant neoplasm of unspecified site of right female breast (principal); R11.0 Nausea; Z90.13 Acquired absence of bilateral breasts and nipples
CPT/HCPCS: 71260; 74178

== ENCOUNTER → 2018-11-30 | Outpatient (CLI) | payer BC ==
[~2018-11-30] MED LIST changes: -BARIUM SUSPENSION 2.1% (VANILLA SILQ) 450 ML PO ONE; -CATHETER FLUSH 10 ML SYR IV PRN; -IOHEXOL 350 MG/ML 100 ML (OMNIPAQUE 350) VIAL IV ONE; -NS 100 ML (IVPB) BAG IV ONE; -RECEIVED CONTRAST (Hold Metformin) IV SCH
--- NOTE | 2018-11-30 14:56 | Diagnostic Imaging Report ---
INDICATION: Injury to the left lower extremity. TIME OF EXAM: 02:32 p.m. EXAMINATION: AP and lateral views of the left tibia and fibula were obtained. FINDINGS: Alignment at the knee and ankle appears normal. Tibia and fibula are intact. No fractures are identified. Soft tissues are unremarkable. IMPRESSION: No acute bony abnormality is detected. Dictated by: Dictated on workstation # [id number]
== END ==
LOC: RAD 14:24
PROVIDERS: ATTEND Nurse Practitioner Family
DX: S89.92XA Unspecified injury of left lower leg, initial encounter (principal)
CPT/HCPCS: 73590

== ENCOUNTER 2019-02-12 08:45 | Outpatient (RCR) | payer BC | END 2019-04-27 | disposition home or self-care (01) | DX: M54.2 Cervicalgia (principal); M54.6 Pain in thoracic spine; M79.2 Neuralgia and neuritis, unspecified ==

== ENCOUNTER → 2019-02-25 | Outpatient (CLI) | payer BC | LOC: RAD 12:12 | PROVIDERS: ATTEND Nurse Practitioner Family | DX: N63.0 Unspecified lump in unspecified breast (principal); Z85.3 Personal history of malignant neoplasm of breast; Z53.8 Procedure and treatment not carried out for other reasons ==

== ENCOUNTER 2019-06-04 08:50 | Outpatient (RCR) | payer BC ==
[2019-06-04 09:14] LABS: BASOPHILS % (AUTO) 0 % (0-10); EOSINOPHILS # (AUTO) 0.1 10^3/uL (0.0-0.3); EOSINOPHILS % (AUTO) 2 % (0-10); HEMATOCRIT 39 % (35-52); HEMOGLOBIN 12.9 G/DL (11.5-16.0); LYMPHOCYTES # (AUTO) 1.8 X 10^3 (1.0-4.0); LYMPHOCYTES % (AUTO) 27 % (12-44); MEAN CORPUSCULAR HEMOGLOBIN 31 PG (25-34); MEAN CORPUSCULAR HGB CONC 34 G/DL (32-36); MEAN CORPUSCULAR VOLUME 93 FL (80-99); MEAN PLATELET VOLUME 9.4 FL (7.4-10.4); MONOCYTES # (AUTO) 0.4 X 10^3 (0.0-1.0); MONOCYTES % (AUTO) 6 % (0-12); NEUTROPHILS # (AUTO) 4.4 X 10^3 (1.8-7.8); NEUTROPHILS % (AUTO) 65 % (42-75); PLATELET COUNT 168 10^3/uL (130-400); RED CELL DISTRIBUTION WIDTH 12.1 % (10.0-14.5); WHITE BLOOD COUNT 6.8 10^3/uL (4.3-11.0)
[2019-06-04 09:37] LABS: ALANINE AMINOTRANSFERASE 23 U/L (0-55); ALBUMIN 4.1 GM/DL (3.2-4.5); ALKALINE PHOSPHATASE 46 U/L (40-136); BILIRUBIN,TOTAL 0.5 MG/DL (0.1-1.0); BUN/CREATININE RATIO 19; CALCIUM 8.3 MG/DL (8.5-10.1); CARBON DIOXIDE 20 MMOL/L (21-32); CHLORIDE 111 MMOL/L (98-107); CREATININE SERUM 0.72 MG/DL (0.60-1.30); GFR ESTIMATED > 60; GLUCOSE 88 MG/DL (70-105); POTASSIUM 4.1 MMOL/L (3.6-5.0); SODIUM 139 MMOL/L (135-145); TOTAL PROTEIN 6.2 GM/DL (6.4-8.2)
[2019-07-29] MEDS ORDERED: PRD20T PO (18:29)
[2019-07-29] MEDS ORDERED: GABA-488 PO (18:29)
[2019-07-29] MEDS ORDERED: HYDR-3990 PO (18:29)
== END 2019-09-02 | disposition home or self-care (01) ==
LOC: ONC 08:50
PROVIDERS: ATTEND Internal Medicine Hematology & Oncology
DX: C50.411 Malignant neoplasm of upper-outer quadrant of right female breast (principal); E03.9 Hypothyroidism, unspecified; F32.9 Major depressive disorder, single episode, unspecified; Z90.13 Acquired absence of bilateral breasts and nipples; Z79.899 Other long term (current) drug therapy
CPT/HCPCS: 36415; 80053; 85025; 87804; 99213

== ENCOUNTER 2019-07-29 17:50 | Emergency (ER) | payer BC ==
[~2019-07-29] VITALS: Ht 172 cm; Wt 68.0 kg
[2019-07-29] MEDS ORDERED: PRD20T PO (18:29)
[2019-07-29] MEDS ORDERED: GABA-488 PO (18:29)
[2019-07-29] MEDS ORDERED: HYDR-3990 PO (18:29)
[2019-07-29] MEDS ORDERED: predniSONE 20 MG TAB PO ONE (18:30)
[2019-07-29] MEDS ORDERED: GABAPENTIN 300 MG (NEURONTIN) CAP PO ONE (18:30)
--- NOTE | 2019-07-29 18:31 | ED Back Pain ---
General Chief Complaint: Back Problems Stated Complaint: PAIN IN SPINE Nursing Triage Note: pt presents to ED with c/o back pain x two days. pt has hx of bulging discs at c4-c6 and has taken 10- 7.5mg hydrocodone pills today as well as 20mg flexeril. Nursing Sepsis Screen: No Definite Risk Source of Information: Patient Exam Limitations: No Limitations History of Present Illness Date Seen by Provider: Jul 29, 2019 Time Seen by Provider: 18:06 Initial Comments This 38-year-old woman presents to emergency room with right neck pain and pain and paresthesias radiating down into the right shoulder and arm. She has a known history of cervical disc bulges. She had previously discussed referral to a spine surgeon with her primary care provider but symptoms resolved with physical therapy. Earlier in the month she had a breast reconstruction performed because she had resection of breast cancer previously. She is in remission from the cancer. Symptoms have flared up since the surgery. She has tried several things to treat the pain including a total of 10 doses hydrocodone/ibuprofen 7.5/200, cyclobenzaprine 20 mg, and a small amount of alcohol. She has had no significant relief. She is a bit distraught because she has plans to fly out of town with her family for a family vacation tomorrow. Pain is rather positional and changes with movement as well. Allergies and Home Medications Allergies Coded Allergies: No Known Drug Allergies (Unverified , 08/04/14) Home Medications Docusate Sodium 100 Mg Capsule, 100 MG PO BID PRN for CONSTIPATION-1ST LINE Prescribed by: LESLY KAUR on 11/13/17 110 Gabapentin 300 Mg Capsule, 300 MG PO TID Prescribed by: NICHOLAS DORSEY on 07/29/19 182 Hydrocodone/Ibuprofen 1 Each Tablet, 1-2 TAB PO Q4-6HR PRN for PAIN-MODERATE Prescribed by: NICHOLAS DORSEY on 07/29/19 182 Ibuprofen 600 Mg Tablet, 600 MG PO Q6H Prescribed by: LESLY KAUR on 11/13/17 110 Levonorgestrel-Ethin Estradiol 1 Each Tablet, 1 EACH PO DAILY Prescribed by: LESLY KAUR on 11/20/17 0921 Levothyroxine Sodium 75 Mcg Tablet, 75 MCG PO DAILY, (Reported) Prednisone 20 Mg Tab, 40 MG PO DAILY Take 3 tabs(60mg)daily, decrease by 1/2 tab(10mg)daily. Prescribed by: NICHOLAS DORSEY on 07/29/191828 [Benzocaine/Menthol] 56 ML AEROSOL, 56 ML TP UD PRN for PAIN-MILD EXTERNAL USE ONLY Prescribed by: LESLY KAUR on 11/13/17 1104 Patient Home Medication List Home Medication List Reviewed: Yes Review of Systems Constitutional: no symptoms reported EENTM: no symptoms reported Respiratory: no symptoms reported Cardiovascular: no symptoms reported Gastrointestinal: no symptoms reported Genitourinary: no symptoms reported Musculoskeletal: see HPI Skin: no symptoms reported Psychiatric/Neurological: See HPI Past Dkefala-[place]oei-Ovfohg Hx Past Med/Social Hx: Reviewed and Corrections made Patient Social History Alcohol Use: Denies Use Recreational Drug Use: No 2nd Hand Smoke Exposure: No Recent Foreign Travel: No Contact w/Someone Who Travel: No Recent Infectious Disease Expo: No Recent Hopitalizations: Yes (DOUBLE MASECTOMY 05/06/18) Immunizations Up To Date Tetanus Booster (TDap): Less than 5yrs PED Vaccines UTD: No Seasonal Allergies Seasonal Allergies: No Past Medical History Surgeries: Yes Adenoidectomy, Breast (Reconstruction after cancer surgeries), Hysterectomy, Tonsillectomy Respiratory: No Cardiac: Yes (pulse runs in the 40's-her normal) Neurological: No Reproductive Disorders: No Genitourinary: No Gastrointestinal: Yes (RECTOCELE) Musculoskeletal: No Endocrine: Yes Hypothyroidsim HEENT: No Cancer: Yes Breast Did You Recieve Any Treatments: Yes What Type of Treatment Did You: Surgical Intervention Psychosocial: No Integumentary: No Blood Disorders: No (anemia in past) Adverse Reaction/Blood Tranf: No Family Medical History Congenital heart disease 19 FATHER (FATHER AT 51 , stroke also) No Pertinent Family Hx Physical Exam Vital Signs Vital Signs - First Documented 07/29/19 18:03 Temp 36.4 Pulse 69 Resp 22 B/P (MAP) 136/80 (98) Pulse Ox 100 O2 Delivery Room Air Capillary Refill : Less Than 3 Seconds Height, Weight, BMI Height: 5'8.00" Weight: 155lbs. 0.0oz. 70.161276yl; 22.00 BMI Method:Stated General Appearance: WD/WN, Mild Distress HEENT: PERRL/EOMI, Normal ENT Inspection Neck: Other (Decreased range of motion due to muscle tension. Very intense right sided paraspinous muscles without significant tenderness) Cardiovascular: Regular Rate, Rhythm, No Edema, No Murmur Respiratory: Lungs Clear, Normal Breath Sounds, No Accessory Muscle Use, No Respiratory Distress Back: Normal Inspection Extremity: Other (There is a vague generalized tenderness throughout the right upper extremity and shoulder without any focal area of tenderness. There is pain with range of motion. Nursing Unit Clerk, sensation, and radial pulses all intact) Progress/Results/Core Measures Results/Orders My Orders Orders - NICHOLAS MARIE MD Gabapentin Capsule/Tablet (Neurontin Cap (07/29/19 18:30) Prednisone Tablet (Deltasone Tablet) (07/29/19 18:30) Vital Signs/I&O 07/29/19 07/29/19 18:03 18:39 Temp 36.4 Pulse 69 68 Resp 22 18 B/P (MAP) 136/80 (98) 129/77 Pulse Ox 100 100 O2 Delivery Room Air Room Air Blood Pressure Mean: 98 POS Progress Progress Note : Progress Note Patient was treated with gabapentin and prednisone and prescriptions were provided. She'll need close follow-up with her primary care provider soon as possible. Departure Impression Primary Impression: Cervical radiculopathy Disposition: 01 HOME, SELF-CARE Condition: Improved Departure-Patient Inst. Referrals: PAMELA BOO MD (PCP/Family) Primary Care Physician Patient Instructions: Radiculopathy Add. Discharge Instructions: You may continue to use your hydrocodone/ibuprofen as prescribed. Do not exceed 2 tablets and a 4 hour period of time. Try gabapentin as prescribed. Please be advised this may make you drowsy. Be careful with your activities until you know how it effects you. You may also continue Flexeril as previously prescribed. Do not exceed recommended doses. Gentle heat on your neck may help your muscles relax. Return to care if you have worsening symptoms that are not responsive to the medications provided. Return to care immediately if you develop weakness of your legs, difficulty controlling your bowels or bladder, or other significant neurologic symptoms. Follow-up with your primary care provider soon as possible. All discharge instructions reviewed with patient and/or family. Voiced understanding. Scripts Hydrocodone/Ibuprofen (Hydrocodone-Ibuprofen 5-200 mg) 1 Each Tablet 1-2 TAB PO Q4-6HR PRN for PAIN-MODERATE MDD 10 TABS, #10 TAB Prov: NICHOLAS MARIE MD 07/29/19 Prednisone (Prednisone) 20 Mg Tab 40 MG PO DAILY, #8 TAB Take 3 tabs(60mg)daily, decrease by 1/2 tab(10mg)daily. Prov: NICHOLAS MARIE MD 07/29/19 Gabapentin (Gabapentin) 300 Mg Capsule 300 MG PO TID, #20 CAP Prov: NICHOLAS MARIE MD 07/29/19 Copy Copies To 1: PAMELA BOO MD, JOSHUA T MD Jul 29, 2019 18:31 POS
[2019-07-29 18:39] VITALS: BP 129/77
== END 2019-07-29 18:41 | disposition home or self-care (01) ==
LOC: EDUNIT# 17:50 → ER 17:52
DX: M54.12 Radiculopathy, cervical region (principal); E03.9 Hypothyroidism, unspecified; Z82.49 Family history of ischemic heart disease and other diseases of the circulatory system; Z85.3 Personal history of malignant neoplasm of breast; Z90.710 Acquired absence of both cervix and uterus; Z90.89 Acquired absence of other organs
CPT/HCPCS: 99283

== ENCOUNTER 2019-07-30 09:30 | Outpatient (CLI) | payer BC ==
[~2019-07-30] VITALS: Ht 172.7 cm; Wt 68.0 kg
[~2019-07-30 09:30] MED LIST changes: +GABA-488 PO; +HYDR-3990 PO; +PRD20T PO
[2019-07-30] MEDS ORDERED: fentaNYL INJECTION 100 MCG/2 ML AMP IV ONE ×2 (09:45→12:30)
[2019-07-30] MEDS ORDERED: NS IV 500 ML 500 ML IV SCH (09:45)
[2019-07-30] MEDS ORDERED: BACLOFEN 10 MG (LIORESAL) TAB PO ONE (10:45)
[2019-07-30] MEDS ORDERED: fentaNYL INJECTION 100 MCG/2 ML AMP ONE (12:26)
[2019-07-30 12:35] VITALS: BP 135/83
--- NOTE | 2019-07-30 12:45 | Diagnostic Imaging Report ---
INDICATION: Intractable back pain. FINDINGS: AP and lateral views of the thoracic spine are obtained. Thoracic spinal curvature and alignment are unremarkable. Vertebral body heights and disc spaces are maintained. There is no evidence of paraspinous abnormality. Surgical clips project over the chest, bilaterally. IMPRESSION: No acute thoracic spinal abnormality is detected. Dictated by: Dictated on workstation # [id number]
--- NOTE | 2019-07-30 12:51 | Diagnostic Imaging Report ---
CLINICAL HISTORY: Intractable neck pain radiating down the right shoulder. COMPARISON: None TECHNIQUE: 4 views of the cervical spine. FINDINGS: There is no acute fracture or dislocation of the cervical spine. Included views of the dens demonstrate no acute fracture. There is reversal of the normal lordotic curvature of the cervical spine centered at the C4-C5 level. There is grade 1 anterolisthesis of C4 on C5. Mild degenerative changes are present in the cervical spine with marginal osteophytes and uncovertebral arthropathy. The soft tissues of the neck are normal in appearance. IMPRESSION: 1. No acute fracture or dislocation in the cervical spine. 2. Grade 1 anterolisthesis of C4 on C5 with reversal of the normal lordotic curvature of the cervical spine. This may be partially due to patient positioning. Dictated by: Dictated on workstation # [id number]
== END 2019-07-30 12:35 | disposition home or self-care (01) ==
LOC: SDC 09:30
PROVIDERS: ATTEND Nurse Practitioner Family
DX: M47.812 Spondylosis without myelopathy or radiculopathy, cervical region (principal); M47.814 Spondylosis without myelopathy or radiculopathy, thoracic region
CPT/HCPCS: 72040; 72072; 84703; 96360; 96374; 96376

== ENCOUNTER → 2019-08-27 | Outpatient (CLI) | payer BC ==
--- NOTE | 2019-08-27 11:02 | Diagnostic Imaging Report ---
INDICATION: Lymphadenopathy. Sonographic interrogation of the areas of palpable abnormality were obtained. There is a possible lymph node in the area of palpable abnormality in the right neck posterolaterally, is normal in size at 9 mm x 4 mm x 5 mm. No other abnormalities are identified sonographically at the areas of palpable abnormality. No fluid collections or masses are seen. IMPRESSION: Normal sized lymph node in the posterolateral right neck. The study is otherwise unremarkable. If symptoms persist, consideration could be given to performance of a CT of the soft tissues of the neck with contrast for better characterization. Dictated by: Dictated on workstation # [id number]
== END ==
LOC: RAD 08:53
PROVIDERS: ATTEND Nurse Practitioner Family
DX: R59.9 Enlarged lymph nodes, unspecified (principal)
CPT/HCPCS: 76536

== ENCOUNTER 2019-09-23 11:11 | Outpatient (RCR) | payer BC ==
[2019-09-23 11:53] LABS: BASOPHILS % (AUTO) 0 % (0-10); EOSINOPHILS # (AUTO) 0.1 10^3/uL (0.0-0.3); EOSINOPHILS % (AUTO) 3 % (0-10); HEMATOCRIT 40 % (35-52); HEMOGLOBIN 13.6 G/DL (11.5-16.0); LYMPHOCYTES # (AUTO) 1.8 X 10^3 (1.0-4.0); LYMPHOCYTES % (AUTO) 36 % (12-44); MEAN CORPUSCULAR HEMOGLOBIN 30 PG (25-34); MEAN CORPUSCULAR HGB CONC 34 G/DL (32-36); MEAN CORPUSCULAR VOLUME 89 FL (80-99); MEAN PLATELET VOLUME 10.8 FL (7.4-10.4); MONOCYTES # (AUTO) 0.3 X 10^3 (0.0-1.0); MONOCYTES % (AUTO) 6 % (0-12); NEUTROPHILS # (AUTO) 2.8 X 10^3 (1.8-7.8); NEUTROPHILS % (AUTO) 56 % (42-75); RED CELL DISTRIBUTION WIDTH 12.2 % (10.0-14.5)
[2019-09-23 11:56] LABS: PLATELET COUNT 49 10^3/uL (130-400)
[2019-09-23 12:21] LABS: ALANINE AMINOTRANSFERASE 11 U/L (0-55); ALBUMIN 4.2 GM/DL (3.2-4.5); ALKALINE PHOSPHATASE 51 U/L (40-136); BILIRUBIN,TOTAL 0.4 MG/DL (0.1-1.0); BUN/CREATININE RATIO 27; CALCIUM 8.7 MG/DL (8.5-10.1); CARBON DIOXIDE 17 MMOL/L (21-32); CHLORIDE 112 MMOL/L (98-107); CREATININE SERUM 0.74 MG/DL (0.60-1.30); GFR ESTIMATED > 60; GLUCOSE 113 MG/DL (70-105); POTASSIUM 4.5 MMOL/L (3.6-5.0); SODIUM 139 MMOL/L (135-145); TOTAL PROTEIN 6.2 GM/DL (6.4-8.2)
[2019-09-23 12:26] LABS: BASOPHILS % (AUTO) 0 % (0-10); EOSINOPHILS # (AUTO) 0.1 10^3/uL (0.0-0.3); EOSINOPHILS % (AUTO) 2 % (0-10); HEMATOCRIT 39 % (35-52); HEMOGLOBIN 13.4 G/DL (11.5-16.0); LYMPHOCYTES # (AUTO) 1.9 X 10^3 (1.0-4.0); LYMPHOCYTES % (AUTO) 35 % (12-44); MEAN CORPUSCULAR HEMOGLOBIN 30 PG (25-34); MEAN CORPUSCULAR HGB CONC 34 G/DL (32-36); MEAN CORPUSCULAR VOLUME 88 FL (80-99); MEAN PLATELET VOLUME 9.3 FL (7.4-10.4); MONOCYTES # (AUTO) 0.4 X 10^3 (0.0-1.0); MONOCYTES % (AUTO) 7 % (0-12); NEUTROPHILS # (AUTO) 3.1 X 10^3 (1.8-7.8); NEUTROPHILS % (AUTO) 56 % (42-75); PLATELET COUNT 155 10^3/uL (130-400); RED CELL DISTRIBUTION WIDTH 12.1 % (10.0-14.5); WHITE BLOOD COUNT 5.5 10^3/uL (4.3-11.0)
== END 2019-12-22 | disposition home or self-care (01) ==
LOC: ONC 11:11
PROVIDERS: ATTEND Internal Medicine Hematology & Oncology
DX: C50.411 Malignant neoplasm of upper-outer quadrant of right female breast (principal); E03.9 Hypothyroidism, unspecified; F32.9 Major depressive disorder, single episode, unspecified; Z90.13 Acquired absence of bilateral breasts and nipples; Z79.899 Other long term (current) drug therapy
CPT/HCPCS: 80053; 84443; 85025; 87804; 99213

== ENCOUNTER 2019-10-13 10:34 | Outpatient (RCR) | payer BC | END 2019-10-31 | disposition home or self-care (01) | DX: M54.12 Radiculopathy, cervical region (principal); Z85.3 Personal history of malignant neoplasm of breast ==

== ENCOUNTER → 2019-10-28 | Outpatient (CLI) | payer BC ==
--- NOTE | 2019-10-28 12:11 | Diagnostic Imaging Report ---
INDICATION: Sacroiliitis. Pelvis AP view of the pelvis shows postsurgical changes from internal fixation of the left ilium. There is no acute fracture or dislocation. SI joints and hip joints are well-maintained. IMPRESSION: Postsurgical changes of the left ilium. No acute abnormality seen. Dictated by: Dictated on workstation # [id number]
== END ==
LOC: RAD 10:09
DX: M46.1 Sacroiliitis, not elsewhere classified (principal); Z98.890 Other specified postprocedural states
CPT/HCPCS: 72170

== ENCOUNTER → 2019-10-28 | Outpatient (CLI) | payer BC ==
--- NOTE | 2019-10-28 16:35 | Diagnostic Imaging Report ---
INDICATION: Low back pain. Lumbar spine AP and lateral views of the lumbar spine show normal vertebral body height and alignment. Disc spaces are normal. IMPRESSION: Negative lumbar spine. Dictated by: Dictated on workstation # [id number]
== END ==
LOC: RAD 16:00
PROVIDERS: ATTEND Nurse Practitioner Family
DX: M54.5 Low back pain (principal)
CPT/HCPCS: 72100

== ENCOUNTER 2020-01-06 09:25 | Outpatient (RCR) | payer BC | END 2020-02-17 | disposition home or self-care (01) | DX: M54.12 Radiculopathy, cervical region (principal); Z85.3 Personal history of malignant neoplasm of breast ==

== ENCOUNTER → 2020-02-21 | Outpatient (CLI) | payer BC ==
[2020-02-21 15:43] LABS: BASOPHILS % (AUTO) 0 % (0-10); EOSINOPHILS # (AUTO) 0.1 10^3/uL (0.0-0.3); EOSINOPHILS % (AUTO) 1 % (0-10); HEMATOCRIT 42 % (35-52); HEMOGLOBIN 14.5 G/DL (11.5-16.0); LYMPHOCYTES # (AUTO) 1.8 X 10^3 (1.0-4.0); LYMPHOCYTES % (AUTO) 28 % (12-44); MEAN CORPUSCULAR HEMOGLOBIN 31 PG (25-34); MEAN CORPUSCULAR HGB CONC 34 G/DL (32-36); MEAN CORPUSCULAR VOLUME 90 FL (80-99); MEAN PLATELET VOLUME 9.6 FL (7.4-10.4); MONOCYTES # (AUTO) 0.5 X 10^3 (0.0-1.0); MONOCYTES % (AUTO) 7 % (0-12); NEUTROPHILS # (AUTO) 4.1 X 10^3 (1.8-7.8); NEUTROPHILS % (AUTO) 63 % (42-75); PLATELET COUNT 184 10^3/uL (130-400); RED CELL DISTRIBUTION WIDTH 12.8 % (10.0-14.5); WHITE BLOOD COUNT 6.4 10^3/uL (4.3-11.0)
[2020-02-21 16:04] LABS: ALANINE AMINOTRANSFERASE 22 U/L (0-55); ALBUMIN 4.8 GM/DL (3.2-4.5); ALKALINE PHOSPHATASE 45 U/L (40-136); BILIRUBIN,TOTAL 0.9 MG/DL (0.1-1.0); BUN/CREATININE RATIO 17; CALCIUM 9.3 MG/DL (8.5-10.1); CARBON DIOXIDE 24 MMOL/L (21-32); CHLORIDE 107 MMOL/L (98-107); CREATININE SERUM 0.86 MG/DL (0.60-1.30); GFR ESTIMATED > 60; GLUCOSE 90 MG/DL (70-105); POTASSIUM 3.9 MMOL/L (3.6-5.0); SODIUM 138 MMOL/L (135-145); TOTAL PROTEIN 7.3 GM/DL (6.4-8.2)
== END ==
LOC: EDSTATUS 12-23 08:49 → ONC 15:21
PROVIDERS: ATTEND Internal Medicine Hematology & Oncology
DX: C50.511 Malignant neoplasm of lower-outer quadrant of right female breast (principal); E55.9 Vitamin D deficiency, unspecified; Z90.13 Acquired absence of bilateral breasts and nipples; Z17.1 Estrogen receptor negative status [ER-]; Z79.899 Other long term (current) drug therapy; Z98.82 Breast implant status
CPT/HCPCS: 80053; 85025; G0463; 99213

== ENCOUNTER → 2020-02-21 | Outpatient (CLI) | payer BC | LOC: LAB 15:27 | PROVIDERS: ATTEND Nurse Practitioner Family | DX: E55.9 Vitamin D deficiency, unspecified (principal); E03.9 Hypothyroidism, unspecified; R06.00 Dyspnea, unspecified; Z87.09 Personal history of other diseases of the respiratory system | CPT/HCPCS: 36415; 82306; 84443; 86769 ==

== ENCOUNTER → 2020-06-28 | Outpatient (CLI) | payer BC ==
--- NOTE | 2020-06-28 09:50 | Diagnostic Imaging Report ---
INDICATION: Back pain. EXAMINATION: Lumbar spine. FINDINGS: AP and lateral views of the lumbar spine show normal vertebral body height and alignment. The intervertebral disc spaces are well-maintained. IMPRESSION: Unremarkable lumbar spine. Dictated by: Dictated on workstation # [id number]
--- NOTE | 2020-06-28 09:50 | Diagnostic Imaging Report ---
INDICATION: Neck pain. EXAMINATION: Cervical spine. FINDINGS: AP and lateral views of the cervical spine show degenerative disc changes at C5-C6 with disc space narrowing. There is slight spondylolisthesis at C4-C5 which is probably compensatory. There is no fracture or prevertebral soft tissue swelling. IMPRESSION: Moderate degenerative disc changes at C5-C6. Dictated by: Dictated on workstation # [id number]
--- NOTE | 2020-06-28 09:51 | Diagnostic Imaging Report ---
INDICATION: Back pain. EXAMINATION: Thoracic spine. FINDINGS: AP and lateral views of the thoracic spine show normal vertebral body height and alignment. The disc spaces are well-maintained. IMPRESSION: Negative thoracic spine. Dictated by: Dictated on workstation # [id number]
== END ==
LOC: RAD 08:57
PROVIDERS: ATTEND Family Medicine
DX: M47.812 Spondylosis without myelopathy or radiculopathy, cervical region (principal)
CPT/HCPCS: 72040; 72072; 72100

== ENCOUNTER → 2020-08-17 | Outpatient (CLI) | payer BC ==
[2020-08-17 15:10] LABS: BASOPHILS % (AUTO) 0 % (0-10); EOSINOPHILS # (AUTO) 0.1 10^3/uL (0.0-0.3); EOSINOPHILS % (AUTO) 2 % (0-10); HEMATOCRIT 40 % (35-52); HEMOGLOBIN 13.2 g/dL (11.5-16.0); LYMPHOCYTES # (AUTO) 1.5 10^3/uL (1.0-4.0); LYMPHOCYTES % (AUTO) 29 % (12-44); MEAN CORPUSCULAR HEMOGLOBIN 31 pg (25-34); MEAN CORPUSCULAR HGB CONC 33 g/dL (32-36); MEAN CORPUSCULAR VOLUME 94 fL (80-99); MEAN PLATELET VOLUME 9.7 fL (9.0-12.2); MONOCYTES # (AUTO) 0.4 10^3/uL (0.0-1.0); MONOCYTES % (AUTO) 7 % (0-12); NEUTROPHILS # (AUTO) 3.2 10^3/uL (1.8-7.8); NEUTROPHILS % (AUTO) 62 % (42-75); PLATELET COUNT 167 10^3/uL (130-400); WHITE BLOOD COUNT 5.2 10^3/uL (4.3-11.0)
[2020-08-17 15:24] LABS: ALANINE AMINOTRANSFERASE 16 U/L (0-55); ALBUMIN 4.3 GM/DL (3.2-4.5); ALKALINE PHOSPHATASE 51 U/L (40-136); BILIRUBIN,TOTAL 0.5 MG/DL (0.1-1.0); BUN/CREATININE RATIO 19; CALCIUM 8.5 MG/DL (8.5-10.1); CARBON DIOXIDE 26 MMOL/L (21-32); CHLORIDE 108 MMOL/L (98-107); CREATININE SERUM 0.84 MG/DL (0.60-1.30); GFR ESTIMATED > 60; GLUCOSE 84 MG/DL (70-105); POTASSIUM 3.7 MMOL/L (3.6-5.0); SODIUM 139 MMOL/L (135-145); TOTAL PROTEIN 6.4 GM/DL (6.4-8.2)
== END ==
LOC: ONC 14:56
PROVIDERS: ATTEND Internal Medicine Hematology & Oncology
DX: D05.11 Intraductal carcinoma in situ of right breast (principal); E55.9 Vitamin D deficiency, unspecified
CPT/HCPCS: 80053; 85025; G0463; 99213

== ENCOUNTER → 2021-02-21 | Outpatient (CLI) | payer BC ==
--- NOTE | 2021-02-21 15:23 | Diagnostic Imaging Report ---
INDICATION: Neck pain. TIME OF EXAM: 12:35 PM AP, lateral and odontoid views of the cervical spine were obtained. There is some straightening of the normal cervical lordotic curvature. Minimal retrolisthesis of C5 on C6 is noted. There is degenerative disc disease at C5-C6 with disc space narrowing and marginal spurring. Prevertebral tissues are normal. Odontoid is intact. No fractures are seen. IMPRESSION: Lower cervical spondylosis. No acute bony abnormality is detected. Dictated by: Dictated on workstation # [id number]
--- NOTE | 2021-02-21 15:26 | Diagnostic Imaging Report ---
INDICATION: Back pain. TIME OF EXAM: 12:38 PM Frontal, lateral and swimmer's views of the thoracic spine were obtained. The curvature and alignment is normal. Vertebral body heights are well-maintained. Pedicles and paraspinous line are intact. No fractures are seen. IMPRESSION: No acute bony abnormality is detected. Dictated by: Dictated on workstation # [id number]
== END ==
LOC: RAD 11:51
PROVIDERS: ATTEND Family Medicine
DX: M47.812 Spondylosis without myelopathy or radiculopathy, cervical region (principal)
CPT/HCPCS: 72040; 72072

== ENCOUNTER → 2021-03-02 | Outpatient (CLI) | payer BC ==
--- NOTE | 2021-03-02 09:14 | Diagnostic Imaging Report ---
PROCEDURE: MR imaging cervical spine without contrast. TECHNIQUE: Multiplanar, multisequence MR imaging of the cervical spine was performed without contrast. INDICATION: Left-sided radiculopathy. No prior studies are available for comparison. There is normal curvature to the cervical spine. There may be minimal retrolisthesis C5 on C6 and C6 on C7. The vertebral body marrow signal appears normal. There is multilevel degenerative disc disease, greatest at C5-C6 and C6-C7 levels where there is disc space narrowing and desiccation. Modic changes in the endplates C5-C6 level are noted. The cervical spinal cord demonstrates normal homogeneous signal intensity and normal morphology. Craniocervical junction is unremarkable. C2-C3: No central canal or neural foraminal stenosis is identified. C3-C4: No central canal or neural foraminal stenosis is identified. C4-C5: No central canal or neural foraminal stenosis is identified. C5-C6: There is a prominent right posterior lateral disc/osteophyte complex indenting the ventral thecal sac and producing moderate narrowing of the right neural foramen. Left neural foramen is patent. Central canal is patent. C6-C7: Prominent left posterolateral disc/osteophyte complex indents the ventral thecal sac and produces significant left-sided neural foraminal stenosis. Right neural foramen and central canal are patent. C7-T1: Central canal neural foramina are widely patent. IMPRESSION: C5-C6 and C6-C7 degenerative disc disease with neural foraminal narrowing, as described. No central canal stenosis is detected. Dictated by: Dictated on workstation # [id number]
--- NOTE | 2021-03-02 09:25 | Diagnostic Imaging Report ---
INDICATION: Left-sided radiculopathy. Multiplanar multisequence imaging of the thoracic spine was performed without contrast. Curvature and alignment of the thoracic spine is normal. Vertebral body marrow signal is normal. Vertebral body heights are well maintained. There is fairly normal height and signal intensity to the disc apart from some degenerative changes at approximately the T6-T7 and T7-T8 levels. T6-T7 level does show a right para-midline disc bulge but no significant central canal or neural foraminal narrowing is seen. Minimal disc/osteophyte complex indents the ventral thecal sac at T7-T8 but no central canal or neural foraminal stenosis is seen. All other levels are unremarkable. Paraspinous tissues are unremarkable. IMPRESSION: T6-T7 and T7-T8 degenerative changes and disc bulging, as described. No central canal or neural foraminal stenosis is identified. Dictated by: Dictated on workstation # [id number]
== END ==
LOC: RAD 03-01 08:00
PROVIDERS: ATTEND Nurse Practitioner Family
DX: M47.24 Other spondylosis with radiculopathy, thoracic region (principal); M51.14 Intervertebral disc disorders with radiculopathy, thoracic region; M50.122 Cervical disc disorder at C5-C6 level with radiculopathy; M48.02 Spinal stenosis, cervical region
CPT/HCPCS: 72141; 72146

== ENCOUNTER → 2021-03-14 | Outpatient (CLI) | payer BC ==
--- NOTE | 2021-03-14 13:48 | Diagnostic Imaging Report ---
INDICATION: Right breast carcinoma. Patient's had bilateral mastectomies with bilateral breast reconstruction. Patient reports new palpable abnormality along the inferior margin of the left breast implant. Sonographic interrogation of the area palpable abnormality along the inferior left breast implant was performed. There is homogeneous smoothly marginated hypoechogenicity along the area of palpable abnormality adjacent to the implant. This area measures approximately 4.3 x 0.6 x 1.9 cm at the 4-5 o'clock location. A separate similar echogenicity lesion is seen at the 6:00 location measuring 1.5 x 0.3 x 1.4cm. No internal vascularity is seen. IMPRESSION: BI-RADS Category 0 Smoothly marginated homogeneously hypoechoic region along the surface of the left breast implant inferiorly from 4-6 o'clock corresponding to the palpable abnormality. This could potentially represent scar tissue. Extracapsular silicone cannot be entirely excluded. Diagnostic mammography would be recommended. ACR BI-RADS Category 0: Incomplete. (Needs additional imaging evaluation). Dictated by: Dictated on workstation # [id number]
--- NOTE | 2021-03-14 14:09 | Diagnostic Imaging Report ---
Indication: Right breast carcinoma. Patient's had bilateral mastectomy with bilateral breast reconstruction with implants. Patient has a new palpable abnormality in the inferior margin of the left implant. 3-D bilateral diagnostic mammography was performed. There are bilateral breast implants present. Contours appear to be fairly smooth. No definite evidence of extracapsular rupture is identified. Multiple surgical clips are identified bilaterally. IMPRESSION: BI-RADS 0 No mammographic features suspicious for malignancy are seen. Further evaluation with MRI of the breasts with and without contrast is recommended to further evaluate the area of palpable abnormality along the inferior margin of the left breast implant. ACR BI-RADS Category 0: Incomplete. (Needs additional imaging evaluation). Result letter will be mailed to the patient. Note: At least 10% of breast cancer is not imaged by mammography. Dictated by: Dictated on workstation # [id number]
== END ==
LOC: RAD 03-13 11:16
PROVIDERS: ATTEND Family Medicine
DX: N63.23 Unspecified lump in the left breast, lower outer quadrant (principal); Z90.13 Acquired absence of bilateral breasts and nipples; Z85.3 Personal history of malignant neoplasm of breast; Z98.82 Breast implant status
CPT/HCPCS: 76642; 77066; G0279; 77062

== ENCOUNTER → 2021-03-19 | Outpatient (CLI) | payer BC ==
[~2021-03-19] MED LIST changes: +GADOBUTROL 7.5 MMOL/7.5 ML (GADAVIST) VIAL IV ONE
--- NOTE | 2021-03-19 14:10 | Diagnostic Imaging Report ---
Reason for examination: History of breast implants with a history of right breast cancer status post mastectomy with left breast palpable lump. Comparison is made to a previous mammogram and ultrasound exam from 03/14/2021. That area evaluated a palpable region in the left breast lower outer quadrant at the 4-5 o'clock positions. Question scar tissue versus silicone. TECHNIQUE: Utilizing 1.5 Marisela Siemens magnet, patient was placed in a prone position with a 16 channel Sentinelle dedicated breast coil utilized. Axial STIR and fat sat T2 precontrasted images and axial T1 with and without fat-sat images were obtained. Postcontrast high-resolution dynamic images were also obtained. Pre and post contrasted images are then evaluated with Greekdrop for evaluation of possible angiogenesis. 7 mL of Gadavist was injected. There is mild background parenchymal enhancement. Bilateral prepectoral silicone implants are intact. RIGHT BREAST: No suspicious mass or non-mass enhancement in the right breast. LEFT BREAST: No suspicious mass or non-mass enhancement in the left breast: The area of palpable concern in the left breast lower-outer quadrant shows expected postop changes with no suspicious findings. No free silicone. VARSHA BASINS: No suspicious adenopathy in the bilateral regional varsha basins. IMPRESSION: 1. No MRI evidence for malignancy. Bilateral prepectoral silicone implants are intact. Area of palpable concern in the lower outer quadrant of the left breast shows expected postop findings with no suspicious mass or enhancement. No free silicone. Clinical follow-up is recommended. Otherwise, annual screening mammography. ACR BI-RADS Category 2: Benign findings. Recommendations: Clinical follow-up for the reported left lower outer quadrant palpable area, otherwise, annual screening mammography. Dictated by: Dictated on workstation # [id number]
== END ==
LOC: RAD 08:00
PROVIDERS: ATTEND Nurse Practitioner Family
DX: N63.20 Unspecified lump in the left breast, unspecified quadrant (principal); Z85.3 Personal history of malignant neoplasm of breast; Z98.82 Breast implant status; Z90.11 Acquired absence of right breast and nipple
CPT/HCPCS: 77049

== ENCOUNTER → 2021-03-23 | Outpatient (CLI) | payer BC ==
[~2021-03-23] MED LIST changes: -GADOBUTROL 7.5 MMOL/7.5 ML (GADAVIST) VIAL IV ONE
--- NOTE | 2021-03-23 15:12 | Diagnostic Imaging Report ---
EXAMINATION: US Right Lower Extremity Venous Duplex. TECHNIQUE: Multiple real-time grayscale images were obtained over the right lower extremity in various projections. Additional spectral analysis and color Doppler duplex images were also obtained. HISTORY: Postoperative leg pain. COMPARISON: None available. FINDINGS: Right: The common femoral, superficial femoral, popliteal, peroneal, posterior tibial, and greater saphenous veins demonstrate normal flow, augmentation, compressibility. IMPRESSION: 1. No DVT of the right lower extremity. Dictated by: Dictated on workstation # [id number]
== END ==
LOC: RAD 14:32
DX: N65.0 Deformity of reconstructed breast (principal); G89.18 Other acute postprocedural pain; N65.1 Disproportion of reconstructed breast; Z90.13 Acquired absence of bilateral breasts and nipples; Z98.890 Other specified postprocedural states

== ENCOUNTER 2021-06-21 13:26 | Outpatient (RCR) | payer BC | END 2021-06-26 | disposition home or self-care (01) | PROVIDERS: ATTEND Physical Medicine & Rehabilitation | DX: M50.122 Cervical disc disorder at C5-C6 level with radiculopathy (principal); M48.02 Spinal stenosis, cervical region ==

== ENCOUNTER → 2021-07-02 | Outpatient (CLI) | payer BC ==
[2021-07-02 14:17] LABS: BASOPHILS % (AUTO) 0 % (0-10); EOSINOPHILS # (AUTO) 0.1 10^3/uL (0.0-0.3); EOSINOPHILS % (AUTO) 1 % (0-10); HEMATOCRIT 42 % (35-52); HEMOGLOBIN 14.2 g/dL (11.5-16.0); LYMPHOCYTES # (AUTO) 1.8 10^3/uL (1.0-4.0); LYMPHOCYTES % (AUTO) 26 % (12-44); MEAN CORPUSCULAR HEMOGLOBIN 30 pg (25-34); MEAN CORPUSCULAR HGB CONC 34 g/dL (32-36); MEAN CORPUSCULAR VOLUME 89 fL (80-99); MEAN PLATELET VOLUME 9.3 fL (9.0-12.2); MONOCYTES # (AUTO) 0.6 10^3/uL (0.0-1.0); MONOCYTES % (AUTO) 9 % (0-12); NEUTROPHILS # (AUTO) 4.5 10^3/uL (1.8-7.8); NEUTROPHILS % (AUTO) 64 % (42-75); PLATELET COUNT 183 10^3/uL (130-400)
[2021-07-02 14:38] LABS: ALANINE AMINOTRANSFERASE 25 U/L (0-55); ALBUMIN 4.6 GM/DL (3.2-4.5); ALKALINE PHOSPHATASE 63 U/L (40-136); BILIRUBIN,TOTAL 1.4 MG/DL (0.1-1.0); BUN/CREATININE RATIO 29; CARBON DIOXIDE 20 MMOL/L (21-32); CHLORIDE 103 MMOL/L (98-107); GFR ESTIMATED 79; GLUCOSE 91 MG/DL (70-105); POTASSIUM 4.1 MMOL/L (3.6-5.0); SODIUM 136 MMOL/L (135-145)
== END ==
LOC: ONC 13:59
PROVIDERS: ATTEND Internal Medicine Hematology & Oncology
DX: D05.11 Intraductal carcinoma in situ of right breast (principal); E55.9 Vitamin D deficiency, unspecified; K92.1 Melena; Z90.13 Acquired absence of bilateral breasts and nipples
CPT/HCPCS: 80053; 85025; G0463; 99213

== ENCOUNTER 2021-08-29 08:25 | Outpatient (RCR) | payer BC | END 2021-08-31 | disposition home or self-care (01) | PROVIDERS: ATTEND Physical Medicine & Rehabilitation | DX: M50.123 Cervical disc disorder at C6-C7 level with radiculopathy (principal); M48.02 Spinal stenosis, cervical region ==

== ENCOUNTER → 2022-03-11 | Outpatient (CLI) | payer BC ==
[~2022-03-11] MED LIST changes: +CATHETER FLUSH 10 ML SYR IV PRN; +HOLD METFORMIN - RECEIVED CONTRAST 20 ML VIAL IV SCH; +IOHEXOL 350 MG/ML 100 ML (OMNIPAQUE 350) VIAL IV ONE; +NS 100 ML (IVPB) BAG IV ONE
[2022-03-11 14:12] LABS: ALBUMIN 4.3 GM/DL (3.2-4.5); POTASSIUM 4.5 MMOL/L (3.6-5.0)
[2022-03-11 14:13] LABS: CALCIUM 9.1 MG/DL (8.5-10.1)
[2022-03-11 14:15] LABS: TOTAL PROTEIN 6.6 GM/DL (6.4-8.2)
[2022-03-11 14:16] LABS: BILIRUBIN,TOTAL 0.7 MG/DL (0.1-1.0)
[2022-03-11 14:18] LABS: CREATININE SERUM 0.8 MG/DL (0.60-1.30)
--- NOTE | 2022-03-11 15:01 | Diagnostic Imaging Report ---
PROCEDURE: CT abdomen and pelvis with contrast. TECHNIQUE: Multiple contiguous axial images were obtained through the abdomen and pelvis after administration of intravenous contrast. Auto Exposure Controls were utilized during the CT exam to meet ALARA standards for radiation dose reduction. All CT scans use one or more of the following dose optimizing techniques: automated exposure control, MA and/or KvP adjustment based on patient size and exam type or iterative reconstruction. INDICATION: Back spasms. The lung bases are clear. No focal liver mass is detected. Gallbladder is contracted. There is no biliary duct dilatation. Pancreas and spleen are unremarkable. No adrenal mass is detected. Right kidney does show some prominence of the renal pelvis however this is similar to prior study dating back to 10/12/2018. There is a calcific density in the right hemipelvis as well in the region of the distal right ureter. Distal ureteric calculus cannot be entirely excluded. This could represent a phlebolith. Aorta is nonaneurysmal. The uterus contains an IUD. No bladder calculi are seen. Bowel loops are normal caliber. There is no obstruction. There is no free fluid. The bony pelvis does show a postoperative changes with multiple clips in place transfixing a left iliac bone and acetabular roof. IMPRESSION: 1. Essentially unremarkable CT abdomen and pelvis with contrast. There is a small calcific density in the right pelvis in the region of the distal right ureter and a distal ureteric calculus cannot be entirely excluded. Correlation to clinical symptoms and urinalysis would be recommended. No other significant abnormality is seen. Dictated by: Dictated on workstation # [id number]
== END ==
LOC: RAD 13:15
PROVIDERS: ATTEND Family Medicine
DX: R10.2 Pelvic and perineal pain (principal); R25.2 Cramp and spasm
CPT/HCPCS: 36415; 74177; 80053

== ENCOUNTER → 2022-10-02 | Outpatient (CLI) | payer BC ==
[~2022-10-02] MED LIST changes: -CATHETER FLUSH 10 ML SYR IV PRN; -HOLD METFORMIN - RECEIVED CONTRAST 20 ML VIAL IV SCH; -IOHEXOL 350 MG/ML 100 ML (OMNIPAQUE 350) VIAL IV ONE; -NS 100 ML (IVPB) BAG IV ONE
--- NOTE | 2022-10-02 11:43 | Diagnostic Imaging Report ---
PROCEDURE: MRI lumbar spine. TECHNIQUE: Multiplanar, multisequence MRI of the lumbar spine was performed without contrast. INDICATION: Lower back pain. COMPARISON: None FINDINGS: For the purposes of this exam, last well-formed disc space is noted at the L5-S1 level. Static alignment is maintained. There is no significant anteroretrolisthesis. There is no evidence of jumped facets. Vertebral body heights are maintained. There is no acute fracture. Evaluation of the marrow signal demonstrates Modic type I changes involving the adjacent endplates at the L5-S1 level. There is also intervertebral disc height loss at this level. Visualized portions of distal cord are unremarkable. Conus terminates at approximately T12-L1 level. No abnormal intrathecal filling defects are seen. Pre and paravertebral soft tissue structures are unremarkable. Axial images demonstrate the following: T12-L1 through L3-L4: There is no large disc bulge or focal protrusion. There is no significant spinal canal or neuroforaminal stenosis. L4-L5: There is broad-based posterior disc bulge and bilateral ligamentum flavum laxity and facet arthropathy. As a result, there is mild stenosis of the spinal canal and mild to moderate narrowing of bilateral neural foramen. L5-S1: There is broad-based posterior disc bulge with superimposed central posterior disc protrusion. There appears to be early inferior extrusion of disc material as well. There is also mild bilateral facet arthropathy. As a result, there is minimal narrowing of the spinal canal and bilateral neural foramen. IMPRESSION: 1. No acute fracture or dislocation of the lumbar spine. 2. Degenerative changes at the L4-L5 and L5-S1 levels as above. Dictated by: Dictated on workstation # [id number]
== END ==
LOC: RAD 10:12
PROVIDERS: ATTEND Family Medicine
DX: M47.816 Spondylosis without myelopathy or radiculopathy, lumbar region (principal); M47.817 Spondylosis without myelopathy or radiculopathy, lumbosacral region
CPT/HCPCS: 72148

== ENCOUNTER → 2023-06-23 | Outpatient (CLI) | payer BC ==
--- NOTE | 2023-06-23 10:16 | Diagnostic Imaging Report ---
INDICATION: Right-sided breast pain. Patient has had a prior right mastectomy with right breast reconstruction. FINDINGS: Sonographic interrogation of the right breast was performed. There is an implant in place. No robert-implant fluid collection or mass is seen. No sonographic abnormality is identified. No solid or cystic mass is detected. IMPRESSION: No sonographic abnormality is detected. ACR BI-RADS Category 2: Benign findings. Dictated by: Dictated on workstation # [id number]
== END ==
LOC: RAD 07:49
PROVIDERS: ATTEND Nurse Practitioner Adult Health
DX: N64.4 Mastodynia (principal); Z98.82 Breast implant status; Z90.13 Acquired absence of bilateral breasts and nipples